=== PATIENT | male | born 1950 | race Caucasian/White ===

== ENCOUNTER → 2019-07-24 09:41 | Outpatient (BNVA) | payer MEDICARE, OTHER, SELFPAY | PROVIDERS: Family Provider Nurse Practitioner Family; PCP Nurse Practitioner Family; Visit Provider Nurse Practitioner | DX: G89.29 Other chronic pain (principal); M47.812 Spondylosis without myelopathy or radiculopathy, cervical region; M54.5 Low back pain; M25.511 Pain in right shoulder; Z79.891 Long term (current) use of opiate analgesic | CPT/HCPCS: 80053; 80061; 83036; 85025; 99213; 99214 ==

== ENCOUNTER 2019-08-13 10:34 | Outpatient (CLI) | payer MEDICARE, OTHER, SELFPAY ==
--- NOTE | 2019-08-13 11:00 | MR_ITS ---
WS: [id number] MRI RIGHT SHOULDER NONCONTRAST TECHNIQUE: Sagittal T2, coronal T1, T2 and proton density imaging. Axial gradient PDE imaging. CLINICAL INFORMATION: Pain COMPARISON: None. FINDINGS: Moderate hypertrophic changes at the AC joint with mild edema. Mild downsloping acromion. Distal supr aspinatus is normal. Infraspinatus is normal. Normal teres minor. Subscapularis tendon is normal in a ppearance. Rotator cuff is intact. Normal biceps tendon in the bicipital groove. Small amount of fluid in the subcoracoid bursa. Small SLAP tear involving the anterosuperior glenoid labrum. Biceps labral anchor appears intact. No other significant findings. MR/MR shoulder RT wo con* [id number] IMPRESSION: 1. Moderate degenerative arthritis at the AC joint with edema and mild downslo ping of the acromion. 2. Rotator cuff is intact. No rotator cuff tears. 3. Normal biceps tendon in the bicipital groove. 4. Suggestion of a small SLAP tear involving the anterior superior glenoid lab rum. Biceps labral anchor appears intact.
== END 2019-08-13 10:35 | disposition home or self-care (01) ==
LOC: RADSHAW 10:34
PROVIDERS: Visit Provider Nurse Practitioner
DX: M25.511 Pain in right shoulder (principal)
CPT/HCPCS: 73221

== ENCOUNTER 2019-08-13 10:40 | Outpatient (CLI) | payer MEDICARE, OTHER, SELFPAY ==
[2019-08-13 12:02] LABS: Prostate Specific Antigen < 0.02 ng/mL (0-4)
[2019-08-13] MEDS: lidocaine 1% INJ 20 mL INJECTION (16:00)
[2019-08-13] MEDS: goserelin acetate 10.8 mg Implant IM (16:13)
== END 2019-08-13 10:41 | disposition home or self-care (01) ==
LOC: ONCMED 10:40
PROVIDERS: Visit Provider Internal Medicine Hematology & Oncology
DX: C61 Malignant neoplasm of prostate (principal); R59.0 Localized enlarged lymph nodes; R91.8 Other nonspecific abnormal finding of lung field; Z79.818 Long term (current) use of other agents affecting estrogen receptors and estrogen levels; Z92.3 Personal history of irradiation
CPT/HCPCS: 84153; 96372; 96402; 99214; J2001; J9202

== ENCOUNTER 2019-08-16 09:00 | Outpatient (CLI) | payer MEDICARE, OTHER, SELFPAY ==
--- NOTE | 2019-08-16 16:23 | ONCRAD EPV_ITS ---
Radiation Oncology Established Patient Visit Patient: Ray MR#: [id number] : 1950> Age: 69> Sex: Male> Dictated by: Dr. Kolby Nick Date of Service: 08/16/2019 Referring Physician(s) : Natacha Mandel Diagnosis: C61 - Malignant neoplasm of prostate, Diagnosed 09/22/2018 (Active) Stage X, T2b, N1, MX Radiotherapy to Date: Course: Prostate Treatment Site: [id number] Ref. ID: [id number] Energy: 15X/6X Dose/Fx (cGy): 180 #Fx: 25 / 25 Dose Correction (cGy): 0 Total Dose (cGy): 4,500 Start Date: 01/15/2019 End Date: 02/16/2019 Elapsed Days: 32 Course: Prostate Treatment Site: [id number] Ref. ID: [id number] Energy: 15X/6X Dose/Fx (cGy): 200 #Fx: 5 / 5 Dose Correction (cGy): 0 Total Dose (cGy): 1,000 Start Date: 02/19/2019 End Date: 02/23/2019 Elapsed Days: 4 Course: Prostate Treatment Site: [id number] Ref. ID: [id number] Energy: 15X/6X Dose/Fx (cGy): 200 #Fx: 8 / 8 Dose Correction (cGy): 0 Total Dose (cGy): 1,600 Start Date: 02/26/2019 End Date: 03/07/2019 Elapsed Days: 9 Course: Prostate Treatment Site: [id number] Ref. ID: [id number] Energy: 15X/6X Dose/Fx (cGy): 200 #Fx: 4 / 4 Dose Correction (cGy): 0 Total Dose (cGy): 800 Start Date: 03/08/2019 End Date: 03/14/2019 Elapsed Days: 6 Chief Complaint / History of Present Illness: The patient is a 68 year old gentleman with a recently diagnosed T2b, N1, Mx adenocarcinoma of the prostate [place] score 4+4, PSA 25.3, high risk disease. He received neoadjuvant, concurrent and adjuvant androgen deprivation therapy in combination with external beam radiation therapy to a total dose of 79 Gy completed on March 14, 2019. He continues androgen deprivation therapy. He is doing very well. He has moderate fatigue and hot flashes that is tolerable, nocturia x3-4 but denies dysuria, urgency, frequency, hematuria, rectal irritation or bleeding. His most recent PSA is 0.02. Current Medications: B12 Folate, calcium, fish Oil, gabapentin, glipiZIDE, ibuprofen, levemir FlexTouch, lipitor, lisinopril, magnesium, metFORMIN HCl, multivitamin Adults, tamsulosin HCl, traMADol HCl, xigduo XR. Allergies: No Known Allergies Current Complaints / Review of Systems: Constitutional - Complains of moderate fatigue. Complains of night sweats which occur every night. Denies lack of appetite and fever. Eyes - Complains of blurred vision in the left eye which he has macular degeneration. ENMT - Denies dysphagia, ear pain, mouth dryness, stomatitis and altered taste. Neck - Complains of neck pain occasionally. Integumentary - Denies rash. Cardiovascular - Denies arrhythmias and chest pain. Respiratory - Complains of a mild cough due to sinus drainage. Denies dyspnea and wheezing. Gastrointestinal - Denies abdominal pain, constipation, diarrhea, heartburn / dyspepsia, hemorrhoids, melena / GI bleeding, nausea and vomiting. Genitourinary (M) - Complains of nocturia gets up about 3 to 4 times per night. Denies dysuria, frequency and urgency. Musculoskeletal - Complains of arthritis and joint pain both shoulders. Denies bone pain. Neurologic - Complains of headaches occasionally. Denies dizziness and abnormal gait. Endocrine - Complains of Type 2 diabetes. Complains of frequent hot flashes. Denies thyroid disease. Hematologic/Lymphatic - Denies tender or enlarged lymph nodes.. Vital Signs: Performed on 08/16/2019 9:25 AM BMI - 26.968 kg/m2 (high), Height - 73.00 in, Weight - 204.4 lbs, Temperature - 97.7 f, Pulse - 71, Respiration - 20, O2 Sat - 97 %, Pain - 0 and BP - 149/ 79 mm(hg)(high/). Physical Exam: General: Alert and oriented x 3. No acute distress. HEENT: Normocephalic, atraumatic. Extraocular Movements Intact: Pupils Equal, Round, Reactive to Light and Accommodation: Sclerae anicteric. Oral cavity is clear without lesions, masses or ulcers. NECK: Supple without supraclavicular or jugular lymphadenopathy. LUNGS: Clear to auscultation bilaterally without rales, rhonchi or wheeze. HEART: Regular rate and rhythm, normal S1 and S2 without murmur, gallop or rub. MUSCULOSKELETAL: No tenderness or percussion pain over the axial skeleton, scapulae or pelvis. ABDOMEN: Soft, nontender, nondistended without masses or organomegaly. Bowel sounds are present. EXTREMITIES: No peripheral edema is identified. Limited motor and sensory examination are grossly intact and symmetric bilaterally. NEUROLOGIC: Cranial nerves II ???XII are grossly intact. Normal sensation, strength 5/5 in all extremities, normal gait, no ataxia. Performance Status: 0 - Fully active, able to carry on all predisease activities without restrictions. (ECOG) Lab: Test performed on 05/11/2019 8:55 AM Testosterone, Total - 2.5 ng/dl (low). PSA 0.02 ng/ml Pathology: Adenocarcinoma of prostate Imaging: See HPI Impression: The patient has a good response to combination therapy. There is no evidence of recurrence or progression of disease. There is no clinical evidence of late radiation toxicities. Plan: The patient will continue androgen deprivation therapy under the care of Dr. Mandel. We will check his PSA in 3 months and he will follow-up with us afterwards. He is instructed to contact us earlier if he has any questions or issues. Signed by: 08/16/2019 4:22:01 PM <<Signature on File>> CPT Code: CPT Code: Signed By: Dr. Kolby Nick, 08/16/2019 4:22:02 PM <<Signature on File>>
== END 2019-08-16 09:01 | disposition home or self-care (01) ==
LOC: ONCMED 09:01
PROVIDERS: Visit Provider Radiology Radiation Oncology
DX: C61 Malignant neoplasm of prostate (principal); E11.9 Type 2 diabetes mellitus without complications; M19.012 Primary osteoarthritis, left shoulder; M19.011 Primary osteoarthritis, right shoulder; Z79.818 Long term (current) use of other agents affecting estrogen receptors and estrogen levels; Z92.3 Personal history of irradiation
CPT/HCPCS: 99213

== ENCOUNTER → 2019-09-18 08:43 | Outpatient (BNVA) | payer MEDICARE, OTHER, SELFPAY | PROVIDERS: PCP Nurse Practitioner; Visit Provider Anesthesiology | DX: R53.82 Chronic fatigue, unspecified (principal); M25.50 Pain in unspecified joint | CPT/HCPCS: 99213 ==

== ENCOUNTER → 2019-10-09 09:28 | Outpatient (BNVA) | payer MEDICARE, OTHER, SELFPAY | PROVIDERS: Visit Provider Nurse Practitioner | DX: E11.65 Type 2 diabetes mellitus with hyperglycemia (principal); Z79.4 Long term (current) use of insulin; E11.9 Type 2 diabetes mellitus without complications | CPT/HCPCS: 80053; 80061; 82044; 83036 ==

== ENCOUNTER 2019-11-12 11:43 | Outpatient (CLI) | payer MEDICARE, OTHER, SELFPAY ==
[2019-11-12 13:05] LABS: Basophils % 0.4 %; Eosinophils # 0.2 10^3/uL (0.0-0.8); Eosinophils % 2.9 %; Hematocrit 33.2 % (42.0-52.0); Hemoglobin 11.4 g/dL (11.7-16.6); Lymphocytes # 1.3 10^3/uL (0.8-4.8); Lymphocytes % 24.4 %; Mean Corpuscular HGB Conc 34.3 g/dL (30.0-36.0); Mean Corpuscular Volume 93.3 fL (80-94); Mean Platelet Volume 10.7 fL (7.4-10.4); Monocytes # 0.4 10^3/uL (0.2-0.9); Monocytes % 7.6 %; Neutrophils # 3.3 10^3/uL (1.8-7.7); Neutrophils % 64.5 %; Nucleated Red Blood Cells % 0 %; Platelet Count 193 10^3/cmm (130-400); Red Blood Count 3.56 10^6/uL (4.1-5.3); Red Cell Distribution Width 12.1 % (12.1-15.1); White Blood Count 5.1 10^3/uL (4.0-10.0)
[2019-11-12 13:21] LABS: Alanine Aminotransferase 21 U/L (0-41); Albumin Level 4.4 g/dL (3.5-5.2); Alkaline Phosphatase 69 IU/L (40-130); Anion Gap 15.8 (5-19); Aspartate Amino Transferase 18 U/L (0-40); Blood Urea Nitrogen 24 mg/dL (8-23); Calcium 9.8 mg/dL (8.5-10.5); Carbon Dioxide 24 mmol/L (22-29); Chloride 103 mmol/L (98-107); Globulin 2.4 g/dL (1.3-4.6); Glucose 193 mg/dL (65-115); Osmolality Calculated 288 mOsm/kg (285-295); Potassium 4.8 mmol/L (3.5-5.1); Sodium 138 mmol/L (136-145); Total Bilirubin 0.8 mg/dL (0.15-1.2); Total Protein 6.8 g/dL (6.6-8.7)
[2019-11-12 13:51] LABS: Prostate Specific Antigen < 0.02 ng/mL (0-4)
[2019-11-12] MEDS: lidocaine 1% INJ 20 mL INJECTION (14:01)
[2019-11-12] MEDS: goserelin acetate 10.8 mg Implant IM (14:14)
--- NOTE | 2019-11-12 14:41 | ONC FU_ITS ---
Dr. Mandel follow up note Patient: Braden Sommer Unit #: [id number]: 1950 Dicatated By: Natacha Mandel M.D.Date of Visit:November 12, 2019 Onc Med Follow-up/Prog Note History of Present Illness: Mr. Braden Sommer, is a 69-year-old gentleman with history of elevated PSA recently on 09/22/2018 underwent TRUSP/biopsy and final pathology report showed in right lateral mid prostate, prostatic adenocarcinoma [place] score 4+4, microscopic focus and in right lateral base, prostatic adenocarcinoma [place] score 3+4 again microscopic focus his PSA at that time diagnosis in September 2018 was 25.3. Patient had bone scan done on 10/11/2018 which showed no definite osteoblastic lesion but there were several areas of suspicious. And CT scan of abdomen pelvis done on 10/11/2018 also showed necrotic left obturator lymph node measuring 2.5 cm and subcentimeter left iliac chain lymph nodes and subcentimeter subpleural left lower lobe nodule Patient was given prescription for bicalutamide 50 mg by mouth daily by Dr. Gonzales.And the Zoladex was started on 11/08/2018 Concurrent radiation therapy to the prostate gland was added on 01/15/2019 And completed on 03/14/2019 Bicalutamide was discontinued because of severe hot flashes and sweating being high risk ,Now on Zoladex alone CT scan of chest done on 11/22/2018 showed stable appearance left lower lobe 5 mm groundglass nodule Left axillary lymphadenopathy of uncertain clinical significance size 14 mm Came for follow-up, denies any specific complaints, no fever and chills no nausea or vomiting no diarrhea constipation no dysuria, no new bony pains, but occasional hot flashes otherwise tolerating Zoladex well Medications: B12 Folate 1 Capsule (of 800-800 mcg) Oral daily, Calcium 1 Tablet (of 500 mg) Oral daily, Fish Oil 1 Capsule (of 1000 mg) Oral daily, Gabapentin 1 Tablet (of 100 mg) Oral PRN, glipiZIDE 1 Tablet (of 5 mg) Oral b.i.d., Ibuprofen 2 Capsule (of 200 mg) Oral PRN, Levemir FlexTouch 1 Units (of 100 Units/L) Subcutaneous daily, Lipitor 1 Tablet (of 80 mg) Oral daily, Lisinopril 1 Tablet (of 10 mg) Oral daily, Magnesium 1 Tablet (of 250 mg) Oral daily, metFORMIN HCl 2 Tablet (of 1000 mg) Oral b.i.d., Multivitamin Adults 1 Tablet Oral daily, Tamsulosin HCl 1 Capsule (of 0.4 mg) Oral at bedtime, traMADol HCl 1 Tablet (of 50 mg) Oral q 6 hours Allergies: No Known Allergies. Review of Systems: Constitutional - Complains of lack of appetite and night sweats. Denies rigors / chills and change in weight, Integumentary - Denies rash, Cardiovascular - Denies arrhythmias, chest pain and palpitations, Respiratory - Denies cough, dyspnea and pleuritic chest pain, Gastrointestinal - Complains of nausea. Denies constipation, diarrhea and vomiting, Genitourinary (M) - Complains of nocturia. Denies dysuria, hematuria, incontinence and urgency, Musculoskeletal - Complains of joint pain in his wrists and arms due to arthritis, Neurologic - Complains of headaches in the morning due to seasonal allergies and insomnia, Psychiatric - Denies depression, Hematologic/Lymphatic - Complains of easy bruising, Constitutional - He is feeling okay and his energy level is good. He is able to do some light work. His appetite is poor but he is able to eat. His weight is stable. No fevers or chills. He has hot flashes and night sweats, ENMT - He has hearing loss. No sore throat. He has sinus drainage particularly in the mornings, Hematologic/Lymphatic - He bruises easily. The patient denies any tender or palpable lymph nodes, Respiratory - No dyspnea on exertion, chest pain, cough or hemoptysis, Cardiovascular - No anginal chest pain, palpitations or orthopnea, Gastrointestinal - He has occasional nausea in the mornings. No vomiting. No diarrhea, GI bleeding, or constipation. No change in bowel habits, no heartburn or early satiety, Genitourinary (M) - No hematuria, dysuria. He has frequency at night. No urgency, hesitancy or incontinence, Musculoskeletal - He has arthiric pain in his wrist and arms. No swelling or redness. No decreased range of motion, Integumentary - No chronic rashes, inflammation, ulcerations or skin changes, Neurologic - He has occasional headaches in the morning related to sinuses. No blurred vision. He has some neuropathy in his feet, Psychiatric - He denies any anxiety, depression, or mood swings. He doesn't sleep well. Vital Signs: Performed on November 12, 2019 13:58 Weight - 197.4 lbs Temperature - 97 F Pulse - 72 Respiration - 18 BP - 144/72 mm(hg) (HIGH) O2 Sat - 100 % Pain - 0 Performed on November 12, 2019 13:36 Height - 73.00 in Weight - 197.4 lbs (LOW) BSA - 2.14 sq.m BMI - 26.04 Temperature - 97.0 F (LOW) Pulse - 72 /min Respiration - 18 /min BP - 144/72 mm(hg) (HIGH) O2 Sat - 100 % Pain - 0 Performance Status: 1 - No physically strenuous activity, but ambulatory and able to carry out light or sedentary work (e.g. office work, light house work). (ECOG) Physical Examination: ENMT - no mouth sores, Respiratory - Lungs are clear, Extremities - no visible edema or rash. Lab/Imaging: Test performed on Aug 13, 2019 10:46 PSA < 0.02 ng/mL Impression: Adenocarcinoma prostate status post TRUSP/biopsy on 09/22/2018 final pathology report showed adenocarcinoma in 2 cores e.g. right lateral mid, [place] score 4+4, microscopic focus only and right lateral base [place] score 3+4 again microscopic focus, PSA at the time of diagnosis was 25.3 .Stage cT2b, N1 MX Bone scan done on 10/11/2018 showed no obvious bone metastases but right scapula focal activity with associated sclerotic focus could be osteoblastic lesion or prior trauma Increased activity overlaying the left inferior pubic ramus without associated osteoblastic lesion on CT pelvis same day CT scan of abdomen pelvis done on 10/11/2018 showed necrotic left obturator lymph node measuring 2.5 cm. Suspicious for lymphadenopathy. Subcentimeter left iliac chain lymph nodes. Enlarged heterogeneous prostate gland measures 6.8 x 6.2 x 6.4 cm. Subcentimeter subpleural left lower lobe nodule. Recommended follow-up CT chest in 3-[address] scan of chest done on showed 11/22/2018 stable appearance left lower lobe 5 mm groundglass nodule. Started on Casodex 50 mg by mouth daily and Zoladex 10.8 mg on 11/08/2018 And was referred to radiation oncology forr concurrent radiation therapy, which he started on 01/15/2019 and completed on 03/14/2019. And bicalutamide was also discontinued , now being high risk,treated with 3 monthly Zoladex alone Left exited lymphadenopathy of uncertain clinical significance, size 14 mm questionable reactive Plan: Discussed with patient regarding his labs white blood count 5.1 hemoglobin 11.4 hematocrit 33.2 platelets 193,000 CMP within normal limit except glucose 193 and PSA less than 0.02 Clinically, patient is doing well with no signs symptoms suggestive of recurrence of disease, and follow-up lab shows PSA still less than 0.02, tolerating Zoladex alone well. But with expected side effects e.g. hot flashes but tolerable. We will proceed with next 3 monthly dose of Zoladex 10.8 mg today and then he'll return to clinic in 3 months with CBC CMP and PSA Mild anemia, etiology could be multifactorial, will continue to monitor. Signed By: Natacha Mandel M.D. <<Signature on File>>
--- NOTE | 2019-11-12 16:18 | ONCRAD EPV_ITS ---
Radiation Oncology Established Patient Visit Patient: Ray MR#: [id number] : 1950> Age: 69> Sex: Male> Dictated by: Dr. Tiago Dillard Date of Service: 11/12/2019 Referring Physician(s) : Dr. Royer Gonzales Diagnosis: C61 - Malignant neoplasm of prostate, Diagnosed 09/22/2018 (Active) Stage SARANYA, T2b, N1, M0 Radiotherapy to Date: Course: Prostate, Treatment Site: [id number], Ref. ID: [id number], Energy: 15X/6X, Dose/Fx (cGy): 180, #Fx: 25 / 25, Dose Correction (cGy): 0, Total Dose (cGy): 4,500, Start Date: 01/15/2019, End Date: 02/16/2019, Elapsed Days: 32 Treatment Site: [id number], Ref. ID: [id number], Energy: 15X/6X, Dose/Fx (cGy): 200, #Fx: 5 / 5, Dose Correction (cGy): 0, Total Dose (cGy): 1,000, Start Date: 02/19/2019, End Date: 02/23/2019, Elapsed Days: 4 Treatment Site: [id number], Ref. ID: [id number], Energy: 15X/6X, Dose/Fx (cGy): 200, #Fx: 8 / 8, Dose Correction (cGy): 0, Total Dose (cGy): 1,600, Start Date: 02/26/2019, End Date: 03/07/2019, Elapsed Days: 9 Treatment Site: [id number], Ref. ID: [id number], Energy: 15X/6X, Dose/Fx (cGy): 200, #Fx: 4 / 4, Dose Correction (cGy): 0, Total Dose (cGy): 800, Start Date: 03/08/2019, End Date: 03/14/2019, Elapsed Days: 6 Chief Complaint / History of Present Illness: Mr. Sommer is now 8 months out from pelvic and prostate radiation treatment. He is on ongoing androgen deprivation therapy. Overall he is stable his urinary function is unchanged from prior to radiation to the current time he has good flow no daytime frequency and stable 3-4 time nocturia. He is on 1 Flomax per day . He has normal flow with no pain or bleeding. His bowel function is normal. He is active with gardening and yard work. He has stable weight with fair appetite. .He does note ongoing hot flashes unchanged which can be bothersome He desires no treatment for this however. Current Medications: B12 Folate, calcium, fish Oil, gabapentin, glipiZIDE, ibuprofen, levemir FlexTouch, lipitor, lisinopril, magnesium, metFORMIN HCl, multivitamin Adults, tamsulosin HCl, traMADol HCl. Allergies: No Known Allergies Current Complaints / Review of Systems: Constitutional - Complains of lack of appetite and night sweats. Denies rigors / chills and change in weight. Integumentary - Denies rash. Cardiovascular - Denies arrhythmias, chest pain and palpitations. Respiratory - Denies cough, dyspnea and pleuritic chest pain. Gastrointestinal - Complains of nausea. Denies constipation, diarrhea and vomiting. Genitourinary (M) - Complains of nocturia. Denies dysuria, hematuria, incontinence and urgency. Musculoskeletal - Complains of joint pain in his wrists and arms due to arthritis. Neurologic - Complains of headaches in the morning due to seasonal allergies and insomnia. Psychiatric - Denies depression. Hematologic/Lymphatic - Complains of easy bruising.. Vital Signs: Performed on 11/12/2019 1:36 PM Height - 73.00 in, Weight - 197.4 lbs (low), BSA - 2.14 sq.m, BMI - 26.04, Temperature - 97.0 f (low), Pulse - 72 /min, Respiration - 18 /min, O2 Sat - 100 %, Pain - 0 and BP - 144/ 72 mm(hg)(high/). Physical Exam: General: Alert and oriented x 3. No acute distress. HEENT: Normocephalic, atraumatic. Extraocular Movements Intact: Pupils Equal, Round, Reactive to Light and Accommodation: Sclerae anicteric. Oral cavity is clear without lesions, masses or ulcers. NECK: Supple without supraclavicular or jugular lymphadenopathy. LUNGS: Clear to auscultation bilaterally without rales, rhonchi or wheeze. HEART: Regular rate and rhythm, normal S1 and S2 without murmur, gallop or rub. MUSCULOSKELETAL: No tenderness or percussion pain over the axial skeleton, scapulae or pelvis. ABDOMEN: Soft, nontender, nondistended without masses or organomegaly. [place] sounds are present. EXTREMITIES: No peripheral edema is identified. Limited motor and sensory examination are grossly intact and symmetric bilaterally. NEUROLOGIC: Cranial nerves II ???XII are grossly intact. Normal sensation, strength 5/5 in all extremities, normal gait, no ataxia. RECTAL:Omitted Performance Status: 100 Lab: None pending. PSA today <0.02 Pathology: Primary, c61 - malignant neoplasm of prostate, Diagnosed 09/22/2018 (active) stage SARANYA, t2b, n1, mo. Imaging: See HPI Impression: Stage Sar[place] adenocarcinoma the prostateRegionally advanced high-grade he is done well with definitive radiation and androgen deprivation therapy. He is urinary function is unchanged following treatment. He has hormonal withdrawal hot flashes are bothersome but he desires not treatment for this at this time. He will remain on androgen deprivation for approximately 24 months in total. I did renew his Flomax 1/day 90-day supply. We will see him in follow-up in 3 months. Signed by: 11/12/2019 4:17:14 PM <<Signature on File>> Time spent with patient: CPT Code: CPT Code:
== END 2019-11-12 11:44 | disposition home or self-care (01) ==
LOC: ONCMED 11:49
PROVIDERS: Absent Provider Radiology Radiation Oncology; PCP Nurse Practitioner; Visit Provider Internal Medicine Hematology & Oncology
DX: C61 Malignant neoplasm of prostate (principal); R59.0 Localized enlarged lymph nodes; D64.9 Anemia, unspecified; Z79.818 Long term (current) use of other agents affecting estrogen receptors and estrogen levels
CPT/HCPCS: 36415; 80053; 84153; 85025; 96372; 96402; 99213; 99214; J2001; J9202

== ENCOUNTER → 2020-01-29 13:09 | Outpatient (BNVA) | payer MEDICARE, OTHER, SELFPAY | PROVIDERS: PCP Nurse Practitioner; Visit Provider Anesthesiology | DX: G89.29 Other chronic pain (principal); M47.812 Spondylosis without myelopathy or radiculopathy, cervical region; M25.511 Pain in right shoulder; Z79.891 Long term (current) use of opiate analgesic | CPT/HCPCS: 99214 ==

== ENCOUNTER → 2020-02-11 13:39 | Outpatient (BNVA) | payer MEDICARE, OTHER, SELFPAY | PROVIDERS: PCP Nurse Practitioner; Visit Provider Internal Medicine Hematology & Oncology | DX: C61 Malignant neoplasm of prostate (principal) | CPT/HCPCS: 80053; 84153; 85025 ==

== ENCOUNTER 2020-02-12 12:04 | Outpatient (CLI) | payer MEDICARE, OTHER, SELFPAY ==
[2020-02-12] MEDS: lidocaine 1% INJ 20 mL INJECTION (13:50)
[2020-02-12] MEDS: goserelin acetate 10.8 mg Implant IM (14:02)
--- NOTE | 2020-02-12 16:07 | ONC FU_ITS ---
Dr. Mandel follow up note Patient: Braden Sommer Unit #: [id number]: 1950 Dicatated By: Natacha Mandel M.D.Date of Visit:Feb 12, 2020 Onc Med Follow-up/Prog Note History of Present Illness: Mr. Braden Sommer, is a 69-year-old gentleman with history of elevated PSA recently on 09/22/2018 underwent TRUSP/biopsy and final pathology report showed in right lateral mid prostate, prostatic adenocarcinoma [place] score 4+4, microscopic focus and in right lateral base, prostatic adenocarcinoma [place] score 3+4 again microscopic focus his PSA at that time diagnosis in September 2018 was 25.3. Patient had bone scan done on 10/11/2018 which showed no definite osteoblastic lesion but there were several areas of suspicious. And CT scan of abdomen pelvis done on 10/11/2018 also showed necrotic left obturator lymph node measuring 2.5 cm and subcentimeter left iliac chain lymph nodes and subcentimeter subpleural left lower lobe nodule Patient was given prescription for bicalutamide 50 mg by mouth daily by Dr. Gonzales.And the Zoladex was started on 11/08/2018 Concurrent radiation therapy to the prostate gland was added on 01/15/2019 And completed on 03/14/2019 Bicalutamide was discontinued because of severe hot flashes and sweating being high risk ,Now on Zoladex alone CT scan of chest done on 11/22/2018 showed stable appearance left lower lobe 5 mm groundglass nodule Left axillary lymphadenopathy of uncertain clinical significance size 14 mm Came for follow-up, denies any specific complaints except occasionally hot flashes otherwise no fever chills, no nausea or vomiting, no diarrhea constipation, no new bony pains, no dysuria or hematuria, appetite is good. Tolerating adjuvant Zoladex well Medications: B12 Folate 1 Capsule (of 800-800 mcg) Oral daily, Calcium 1 Tablet (of 500 mg) Oral daily, Fish Oil 1 Capsule (of 1000 mg) Oral daily, Gabapentin 1 Tablet (of 100 mg) Oral PRN, glipiZIDE 1 Tablet (of 5 mg) Oral b.i.d., Ibuprofen 2 Capsule (of 200 mg) Oral PRN, Levemir FlexTouch 40 Units (of 100 Units/L) Subcutaneous daily, Lipitor 1 Tablet (of 80 mg) Oral daily, Lisinopril 1 Tablet (of 10 mg) Oral daily, Magnesium 1 Tablet (of 250 mg) Oral daily, metFORMIN HCl 2 Tablet (of 1000 mg) Oral b.i.d., Multivitamin Adults 1 Tablet Oral daily, Tamsulosin HCl 1 Capsule (of 0.4 mg) Oral at bedtime, traMADol HCl 1 Tablet (of 50 mg) Oral q 6 hours Allergies: No Known Allergies. Review of Systems: Review of Systems is not available for this patient. Vital Signs: Performed on Feb 12, 2020 13:26 Height - 73.00 in Weight - 194.0 lbs (LOW) BSA - 2.12 sq.m BMI - 25.60 Temperature - 97.6 F (LOW) Pulse - 80 /min Respiration - 18 /min BP - 142/71 mm(hg) (HIGH) O2 Sat - 98 % Pain - 0 Performance Status: 0 - Fully active, able to carry on all predisease activities without restrictions. (ECOG) Physical Examination: ENMT - No mouth sores, no thrush or jaundice, Respiratory - Lungs are clear, Cardiovascular - Regular rate and rhythm of heart, Abdomen - Soft, bowel sounds present, Extremities - No visible edema or rash. Lab/Imaging: Test performed on Feb 11, 2020 13:39 Glucose 245 mg/dL BUN 27 mg/dL Creatinine 0.9 mg/dL Cr Clearance (Est) 93.7000 mL/min Sodium 138 mmol/L Potassium 4.0 mmol/L Chloride 101 mmol/L CO2 24 mmol/L Calcium 9.8 mg/dL Protein, Total 6.8 g/dL Albumin 4.8 g/dL Globulin 2.0 g/dL Bilirubin, Total 0.5 mg/dL Alkaline Phosphatase 101 IU/L AST (SGOT) 23 IU/L ALT (SGPT) 26 IU/L WBC 5.8 10^9/L RBC 3.64 10^12/L HGB 11.9 g/dL HCT 34.3 % MCV 94.2 fl MCH 32.7 pg MCHC 34.7 g/dL RDW 12.1 % Platelet Count 213 10^9/L MPV 10.8 fL Neutrophils (Gran) 3.64 10^9/L Lymphocytes 1.4 10^9/L Monocytes 0.5 10^9/L Eosinophils 0.2 10^9/L Basophils 0.0 10^9/L Manual Lymphocytes 24.2 % Manual Monocytes 8.2 % Manual Eosinophils 3.3 % Manual Basophils 0.5 % PSA 0.006 ng/mL Test performed on November 12, 2019 12:01 Anion Gap 15.8 Neutrophil % 64.5 % Lymphocyte % 24.4 % Monocyte % 7.6 % Eosinophil % 2.9 % Basophils % 0.4 % Impression: Adenocarcinoma prostate status post TRUSP/biopsy on 09/22/2018 final pathology report showed adenocarcinoma in 2 cores e.g. right lateral mid, [place] score 4+4, microscopic focus only and right lateral base Audelia score 3+4 again microscopic focus, PSA at the time of diagnosis was 25.3 .Stage cT2b, N1 MX Bone scan done on 10/11/2018 showed no obvious bone metastases but right scapula focal activity with associated sclerotic focus could be osteoblastic lesion or prior trauma Increased activity overlaying the left inferior pubic ramus without associated osteoblastic lesion on CT pelvis same day CT scan of abdomen pelvis done on 10/11/2018 showed necrotic left obturator lymph node measuring 2.5 cm. Suspicious for lymphadenopathy. Subcentimeter left iliac chain lymph nodes. Enlarged heterogeneous prostate gland measures 6.8 x 6.2 x 6.4 cm. Subcentimeter subpleural left lower lobe nodule. Recommended follow-up CT chest in 3-[address] scan of chest done on showed 11/22/2018 stable appearance left lower lobe 5 mm groundglass nodule. Started on Casodex 50 mg by mouth daily and Zoladex 10.8 mg on 11/08/2018 And was referred to radiation oncology forr concurrent radiation therapy, which he started on 01/15/2019 and completed on 03/14/2019. And bicalutamide was also discontinued , now being high risk,treated with 3 monthly Zoladex alone Left exited lymphadenopathy of uncertain clinical significance, size 14 mm questionable reactive Plan: Discussed with patient regarding his labs white blood count 5.8 hemoglobin 11.9 hematocrit 34.3 platelets 213,000 CMP within normal limits except glucose 245 and PSA is 0.006 Clinically, patient is doing well with no signs symptom suggestive of recurrence of disease, PSA still subzero, tolerating Zoladex well but with expected side effects e.g. occasional hot flashes. We will proceed with the next 3 monthly dose of Zoladex today and then he will return to clinic in 3 months with CBC CMP and PSA. Patient has history of left lower lobe lung 5 mm groundglass nodule, we will consider follow-up prior to next CT scan of chest visit in 3 months. Signed By: Natacha Mandel M.D. <<Signature on File>>
== END 2020-02-12 12:05 | disposition home or self-care (01) ==
LOC: ONCMED 12:07
PROVIDERS: Absent Provider Radiology Radiation Oncology; PCP Nurse Practitioner; Visit Provider Internal Medicine Hematology & Oncology
DX: C61 Malignant neoplasm of prostate (principal); R59.0 Localized enlarged lymph nodes; R91.1 Solitary pulmonary nodule; Z79.818 Long term (current) use of other agents affecting estrogen receptors and estrogen levels; E11.65 Type 2 diabetes mellitus with hyperglycemia; E78.2 Mixed hyperlipidemia; Z79.4 Long term (current) use of insulin; Z92.3 Personal history of irradiation
CPT/HCPCS: 80061; 83036; 83721; 96402; 99214; J9202

== ENCOUNTER 2020-02-20 09:47 | Outpatient (CLI) | payer MEDICARE, OTHER, SELFPAY ==
--- NOTE | 2020-02-20 09:53 | CT_ITS ---
WS: [id number] CT scan of the chest with IV contrast, additional two-dimensional coronal and sagittal reconstruction was performed. 02/20/2020 Clinical Data: PROSTATE CANCER Comparison: CT chest, 11/22/2018. DLP: 836.[address] scans at [facility] use at least one of these dose optimization techniques: automat ed exposure control; mA and/or kV adjustment per patient size (includes targeted exams where dose is matched to clinical indication); or iterative reconstruction. Findings: No masses or effusions are seen. There is a left lower lobe nodule in the lung periphery measuring 0. 5 cm seen best on axial image 48 of 67. It is unchanged and has a appearance of a granuloma. The hear t size is normal with no pericardial effusion. The thyroid gland is not remarkable. The pulmonary art erial system and thoracic aorta demonstrate no abnormalities or dilatations. There is no mediastinal adenopathy. A 0.14 cm left axillary lymph node seen best on axial image 8 of 67 has not changed. The upper abdomen remains the same. CT/CT chest w con* [id number] Impression: No acute cardiopulmonary disease.
[2020-02-20] MEDS: iohexol 300 mg/mL 100 mL Btl IV (11:28)
== END 2020-02-20 09:48 | disposition home or self-care (01) ==
LOC: RADWPI 09:53
PROVIDERS: Family Provider Nurse Practitioner; PCP Nurse Practitioner; Visit Provider Internal Medicine Hematology & Oncology
DX: C61 Malignant neoplasm of prostate (principal)
CPT/HCPCS: 71260; Q9967

== ENCOUNTER → 2020-04-22 10:50 | Outpatient (BNVA) | payer MEDICARE, OTHER, SELFPAY | PROVIDERS: PCP Nurse Practitioner; Visit Provider Anesthesiology | DX: M47.812 Spondylosis without myelopathy or radiculopathy, cervical region (principal); M25.511 Pain in right shoulder; Z79.891 Long term (current) use of opiate analgesic | CPT/HCPCS: 99213; 99214 ==

== ENCOUNTER → 2020-05-12 08:23 | Outpatient (BNVA) | payer MEDICARE, OTHER, SELFPAY | PROVIDERS: PCP Nurse Practitioner; Visit Provider Internal Medicine Medical Oncology | DX: E11.65 Type 2 diabetes mellitus with hyperglycemia (principal); I10 Essential (primary) hypertension; Z79.4 Long term (current) use of insulin; Z79.899 Other long term (current) drug therapy; E78.2 Mixed hyperlipidemia; C61 Malignant neoplasm of prostate | CPT/HCPCS: 80053; 80061; 83036; 84153; 85025 ==

== ENCOUNTER 2020-05-14 13:44 | Outpatient (CLI) | payer MEDICARE, OTHER, SELFPAY ==
[2020-05-14] MEDS: lidocaine 1% INJ 20 mL INJECTION (15:34)
[2020-05-14] MEDS: goserelin acetate 10.8 mg Implant IM (15:48)
--- NOTE | 2020-05-14 15:54 | ONC FU_ITS ---
Dr. Mandel follow up note Patient: Braden Sommer Unit #: [id number]: [id number] Dicatated By: Natacha Mandel M.D.Date of Visit:May 14, 2020 Onc Med Follow-up/Prog Note History of Present Illness: Mr. Braden Sommer, is a 70-year-old gentleman with history of elevated PSA recently on 09/22/2018 underwent TRUSP/biopsy and final pathology report showed in right lateral mid prostate, prostatic adenocarcinoma [place] score 4+4, microscopic focus and in right lateral base, prostatic adenocarcinoma Audelia score 3+4 again microscopic focus his PSA at that time diagnosis in September 2018 was 25.3. Patient had bone scan done on 10/11/2018 which showed no definite osteoblastic lesion but there were several areas of suspicious. And CT scan of abdomen pelvis done on 10/11/2018 also showed necrotic left obturator lymph node measuring 2.5 cm and subcentimeter left iliac chain lymph nodes and subcentimeter subpleural left lower lobe nodule Patient was given prescription for bicalutamide 50 mg by mouth daily by Dr. Gonzales.And the Zoladex was started on 11/08/2018 Concurrent radiation therapy to the prostate gland was added on 01/15/2019 And completed on 03/14/2019 Bicalutamide was discontinued because of severe hot flashes and sweating being high risk ,Now on Zoladex alone CT scan of chest done on 11/22/2018 showed stable appearance left lower lobe 5 mm groundglass nodule Left axillary lymphadenopathy of uncertain clinical significance size 14 mm Follow-up CT scan of chest done on February 20, 2020, showed there is a left lower lobe nodule in the lung periphery measuring 0.5 cm it is unchanged and has appearance of granuloma. And 0.14 cm left axillary lymph node has not changed. Came for follow-up, denies any specific complaints except occasionally hot flashes but no fever chills, no nausea or vomiting, no diarrhea constipation, tolerating Zoladex well along with vitamin D and calcium supplements. Medications: B12 Folate 1 Capsule (of 800-800 mcg) Oral daily, [place] 5 MCG Pen 1 (5 mcg/0.02mL) Subcutaneous b.i.d., Calcium 1 Tablet (of 500 mg) Oral daily, Fish Oil 1 Capsule (of 1000 mg) Oral daily, Gabapentin 1 Tablet (of 100 mg) Oral PRN, glipiZIDE 1 Tablet (of 5 mg) Oral b.i.d., Ibuprofen 2 Capsule (of 200 mg) Oral PRN, Levemir FlexTouch 40 Units (of 100 Units/L) Subcutaneous daily, Lipitor 1 Tablet (of 80 mg) Oral daily, Lisinopril 1 Tablet (of 10 mg) Oral daily, Magnesium 1 Tablet (of 250 mg) Oral daily, metFORMIN HCl 2 Tablet (of 1000 mg) Oral b.i.d., Multivitamin Adults 1 Tablet Oral daily, NovoLOG (100 Units/mL) Subcutaneous Take as Directed, Tamsulosin HCl 1 Capsule (of 0.4 mg) Oral at bedtime, traMADol HCl 1 Tablet (of 50 mg) Oral q 6 hours Allergies: No Known Allergies. Review of Systems: Constitutional - Appetite is stable and weight is stable. No fever, chills, or night sweats. Positive for hot flashes. Energy level is fair, ENMT - No sinus congestion/drainage. No mouth sores. No sore throat or difficulty swallowing, Hematologic/Lymphatic - Easy bruising, Respiratory - No shortness of breath. No cough. No pleuritic pain or hemoptysis, Cardiovascular - No angina pain. No palpitations, Gastrointestinal - No nausea or vomiting. Positive for heartburn/indigestion. No diarrhea or constipation. No blood in the stool or black stools, Genitourinary (M) - No dysuria or hematuria. Positive for urinary frequency, nocturia and incontinence, Musculoskeletal - Positive for joint and back pain, Neurologic - No headache. Positive for dizziness. No numbness/paresthesias or other focal neurologic symptoms, Psychiatric - Positive for anxiety and insomnia. Vital Signs: Performed on May 14, 2020 15:08 Height - 73.00 in Weight - 205.0 lbs (HIGH) BSA - 2.17 sq.m BMI - 27.05 Temperature - 98.0 F (LOW) Pulse - 84 /min Respiration - 18 /min BP - 150/81 mm(hg) (HIGH) O2 Sat - 98 % Pain - 0 Performance Status: 0 - Fully active, able to carry on all predisease activities without restrictions. (ECOG) Physical Examination: ENMT - No mouth sores, no thrush, no jaundice, Respiratory - Lungs are clear to auscultation, Cardiovascular - Regular rate and rhythm of heart, Abdomen - Soft, bowel sounds present, Extremities - No visible edema. Lab/Imaging: Test performed on May 12, 2020 08:23 Glucose 86 mg/dL BUN 26 mg/dL Creatinine 0.8 mg/dL Cr Clearance (Est) 109.78 mL/min Sodium 140 mmol/L Potassium 4.4 mmol/L Chloride 103 mmol/L CO2 26 mmol/L Calcium 9.9 mg/dL Protein, Total 6.6 g/dL Albumin 4.5 g/dL Globulin 2.1 g/dL Bilirubin, Total 0.7 mg/dL Alkaline Phosphatase 106 IU/L AST (SGOT) 25 IU/L ALT (SGPT) 26 IU/L WBC 7.0 10^9/L RBC 3.55 10^12/L HGB 11.9 g/dL HCT 33.9 % MCV 95.5 fl MCH 33.5 pg MCHC 35.1 g/dL RDW 13.1 % Platelet Count 207 10^9/L MPV 10.6 fL Neutrophils (Gran) 4.41 10^9/L Lymphocytes 1.7 10^9/L Monocytes 0.6 10^9/L Eosinophils 0.2 10^9/L Basophils 0.0 10^9/L Manual Lymphocytes 24.6 % Manual Monocytes 8.3 % Manual Eosinophils 2.9 % Manual Basophils 0.4 % PSA 0.006 ng/mL Impression: Adenocarcinoma prostate status post TRUSP/biopsy on 09/22/2018 final pathology report showed adenocarcinoma in 2 cores e.g. right lateral mid, [place] score 4+4, microscopic focus only and right lateral base [place] score 3+4 again microscopic focus, PSA at the time of diagnosis was 25.3 .Stage cT2b, N1 MX Bone scan done on 10/11/2018 showed no obvious bone metastases but right scapula focal activity with associated sclerotic focus could be osteoblastic lesion or prior trauma Increased activity overlaying the left inferior pubic ramus without associated osteoblastic lesion on CT pelvis same day CT scan of abdomen pelvis done on 10/11/2018 showed necrotic left obturator lymph node measuring 2.5 cm. Suspicious for lymphadenopathy. Subcentimeter left iliac chain lymph nodes. Enlarged heterogeneous prostate gland measures 6.8 x 6.2 x 6.4 cm. Subcentimeter subpleural left lower lobe nodule. Recommended follow-up CT chest in 3-6 months. So follow-up CT scan done on February 20, 2020 showed left lower lobe nodule in the lung periphery measuring 0.5 cm and it is unchanged and has appearance of granuloma. And 0.14 cm left axillary lymph node seen again but stable no change when compared with previous scan. CT scan of chest done on showed 11/22/2018 stable appearance left lower lobe 5 mm groundglass nodule. Started on Casodex 50 mg by mouth daily and Zoladex 10.8 mg on 11/08/2018 And was referred to radiation oncology forr concurrent radiation therapy, which he started on 01/15/2019 and completed on 03/14/2019. And bicalutamide was also discontinued , now being high risk,treated with 3 monthly Zoladex alone Left axillary lymphadenopathy of uncertain clinical significance, size 14 mm questionable reactive Plan: Discussed with patient regarding his labs white blood count 7 hemoglobin 11.9 hematocrit 33.9 platelets 207,000 CMP within normal limits PSA 0.[address] scan of chest findings Clinically, patient is doing well with no signs symptom suggestive of recurrence/progression of disease, tolerating 3 monthly Zoladex well but with expected side effects e.g. off and on hot flashes. We will proceed with the next 3 monthly dose of Zoladex today return to clinic in 3 months in the meantime patient will continue with vitamin D and calcium supplement. Patient has history of subcentimeter left subpleural lung nodule and follow-up CT scan done on February 20, 2020 showed persistent 0.5 cm left lower lobe subpleural nodule which is unchanged and has appearance of granuloma. And he also has 0.14 cm left axillary lymph node which is stable too we will continue to monitor and repeat his CT scan of chest in 6 months to ensure no change. Mild anemia, hemoglobin stable we will continue to monitor. Return to clinic in 3 months with CBC and PSA Signed By: Natacha Mandel M.D. <<Signature on File>>
== END 2020-05-14 13:45 | disposition home or self-care (01) ==
LOC: ONCMED 13:49
PROVIDERS: PCP Nurse Practitioner; Visit Provider Internal Medicine Hematology & Oncology
DX: C61 Malignant neoplasm of prostate (principal); R97.20 Elevated prostate specific antigen [PSA]; D64.9 Anemia, unspecified; Z79.818 Long term (current) use of other agents affecting estrogen receptors and estrogen levels
CPT/HCPCS: 96372; 96402; 99214; J9202

== ENCOUNTER 2020-07-08 10:32 | Outpatient (CLI) | payer MEDICARE, OTHER, SELFPAY ==
--- NOTE | 2020-07-08 10:41 | XRR_ITS ---
PROCEDURE INFORMATION: Exam: XR Left Wrist Exam date and time: 07/08/2020 10:55 AM Age: 70 years old Clinical indication: Patient HX: C/O left wrist pain. HX of FX as a child; Additional info: M25.532 - pain in left wrist TECHNIQUE: Imaging protocol: XR Left wrist. Views: 3 or more views. COMPARISON: No relevant prior studies available. FINDINGS: Bones/joints: No fracture or other acute abnormalities are seen in the wrist. Prominent chronic osteoarthritis is present especially in the radioscaphoid joint and lunocapitate joint with prominent loss of the joint space and adjacent sclerosis and erosion.. Soft tissues: Normal. XR/XR wrist LT min 3V* [id number] IMPRESSION: Prominent chronic degenerative joint disease. No acute bone or joint abnormality.
--- NOTE | 2020-07-08 10:41 | XRR_ITS ---
PROCEDURE INFORMATION: Exam: XR Left Knee Exam date and time: 07/08/2020 10:55 AM Age: 70 years old Clinical indication: Patient HX: C/O pain left knee x 3/4 weeks. HX of prostate cancer; Additional info: M25.562 - pain in left knee TECHNIQUE: Imaging protocol: XR Left knee. Views: 3 views. COMPARISON: No relevant prior studies available. FINDINGS: Bones/joints: No fracture or other acute abnormalities are seen. Mild degenerative changes are present with mild medial joint space narrowing tiny osteophyte formation on the patella. Soft tissues: Normal. XR/XR knee LT 3V* [id number] IMPRESSION: Mild degenerative disease. No acute abnormality.
== END 2020-07-08 10:33 | disposition home or self-care (01) ==
LOC: RAD 10:39
PROVIDERS: PCP Nurse Practitioner; Visit Provider Nurse Practitioner Family
DX: M25.562 Pain in left knee (principal); M25.532 Pain in left wrist; G89.29 Other chronic pain
CPT/HCPCS: 73110; 73562

== ENCOUNTER → 2020-07-18 10:42 | Outpatient (BNVA) | payer MEDICARE, OTHER, SELFPAY | PROVIDERS: PCP Nurse Practitioner; Visit Provider Anesthesiology | DX: G89.29 Other chronic pain (principal); M47.812 Spondylosis without myelopathy or radiculopathy, cervical region; M25.511 Pain in right shoulder; M54.9 Dorsalgia, unspecified; M25.562 Pain in left knee; Z79.891 Long term (current) use of opiate analgesic; Z79.899 Other long term (current) drug therapy | CPT/HCPCS: 99214 ==

== ENCOUNTER 2020-07-28 12:18 | Outpatient (CLI) | payer MEDICARE, OTHER, SELFPAY ==
--- NOTE | 2020-07-28 13:00 | MR_ITS ---
WS: [id number] MRI LEFT KNEE HISTORY: M25.562 - Pain in left knee COMPARISON: None available. Anterior cruciate ligament: Intact. Posterior cruciate ligament: Intact. Medial collateral ligament: Mild increased signal and fluid on both sides of the MCL. No tear. Posterior lateral corner structures: Intact. Medial menisci: Small caliber posterior horn. Abnormal signal throughout the majority of the posterio r horn consistent with a tear. Anterior horn is normal. Lateral meniscus: Increased signal in a horizontal manner in the posterior horn. Increased signal lei s not extend to an articular surface. Extensor mechanism: Distal quadriceps tendon and patellar tendons are intact. Fluid and soft tissue: Moderate-sized suprapatellar joint effusion. There is additional moderate amou nt of soft tissue edema surrounding the knee. Moderate-sized Castro's cyst extends over length of 5.5 cm. Osseous and articular structures: Patellofemoral compartment: Marrow edema in the medial patellar facet with narrowing of the medial pa tellar facet joint and a focal defect in the patellar cartilage. Medial compartment: Near complete loss of cartilage in the medial compartment with bone upon bone. Di stribution of fluid in the cartilage of the femoral condyle suggest a demyelinating lesion centrally extending over a width of 6.6 mm. There is underlying marrow edema in the femoral condyle. Lateral compartment: Mild narrowing of the lateral compartment. Cartilage is preserved. No marrow kailey ma. MR/MR knee LT wo con* [id number] IMPRESSION: 1. Advanced degenerative changes in medial compartment. Near complete loss of cartilage with marrow edema and cortical irregularity involving the medial femo ral condyle. 2. Cartilage delamination noted in the medial femoral condyle. 3. Suprapatellar joint effusion, diffuse soft tissue edema and moderate Castro' s cyst. 4. Complex tear posterior horn medial meniscus. Diminutive meniscus remains. 5. Medial patellar facet joint space narrowing with underlying marrow edema an d a focal cartilage defect. Focal defect within the cartilage over the medial p atellar facet.
== END 2020-07-28 12:19 | disposition home or self-care (01) ==
PROVIDERS: PCP Nurse Practitioner; Visit Provider Nurse Practitioner Family
DX: S83.232A Complex tear of medial meniscus, current injury, left knee, initial encounter (principal); X58.XXXA Exposure to other specified factors, initial encounter; M25.462 Effusion, left knee
CPT/HCPCS: 73721

== ENCOUNTER → 2020-08-15 08:20 | Outpatient (BNVA) | payer MEDICARE, OTHER, SELFPAY | PROVIDERS: PCP Nurse Practitioner; Visit Provider Internal Medicine Hematology & Oncology | DX: E11.65 Type 2 diabetes mellitus with hyperglycemia (principal); Z79.4 Long term (current) use of insulin; E78.2 Mixed hyperlipidemia; C61 Malignant neoplasm of prostate | CPT/HCPCS: 80053; 80061; 83036; 83721; 84153; 85025 ==

== ENCOUNTER 2020-08-19 05:46 | Outpatient (CLI) | payer MEDICARE, OTHER, SELFPAY ==
--- NOTE | 2020-08-19 14:44 | ONC FU_ITS ---
Dr. Mandel follow up note Patient: Braden Sommer Unit #: [id number]: 1950 Dicatated By: Natacha Mandel M.D.Date of Visit:Aug 19, 2020 Onc Med Follow-up/Prog Note History of Present Illness: Mr. Braden Sommer, is a 70-year-old gentleman with history of elevated PSA recently on 09/22/2018 underwent TRUSP/biopsy and final pathology report showed in right lateral mid prostate, prostatic adenocarcinoma Mead score 4+4, microscopic focus and in right lateral base, prostatic adenocarcinoma Audelia score 3+4 again microscopic focus his PSA at that time diagnosis in September 2018 was 25.3. Patient had bone scan done on 10/11/2018 which showed no definite osteoblastic lesion but there were several areas of suspicious. And CT scan of abdomen pelvis done on 10/11/2018 also showed necrotic left obturator lymph node measuring 2.5 cm and subcentimeter left iliac chain lymph nodes and subcentimeter subpleural left lower lobe nodule Patient was given prescription for bicalutamide 50 mg by mouth daily by Dr. Gonzales.And the Zoladex was started on 11/08/2018 Concurrent radiation therapy to the prostate gland was added on 01/15/2019 And completed on 03/14/2019 Bicalutamide was discontinued because of severe hot flashes and sweating being high risk ,Now on Zoladex alone CT scan of chest done on 11/22/2018 showed stable appearance left lower lobe 5 mm groundglass nodule Left axillary lymphadenopathy of uncertain clinical significance size 14 mm Follow-up CT scan of chest done on February 20, 2020, showed there is a left lower lobe nodule in the lung periphery measuring 0.5 cm it is unchanged and has appearance of granuloma. And 0.14 cm left axillary lymph node has not changed. came For follow-up, denies any specific complaints, no fever chills, no nausea or vomiting, no diarrhea or constipation, no hot flashes, no new bony pains except left knee pain for which he underwent MRI scan on July 28, 2020 which showed advanced degenerative changes in the medial compartment. 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 Otherwise tolerating 3 monthly Zoladex well Medications: B12 Folate 1 Capsule (of 800-800 mcg) Oral daily, Calcium 1 Tablet (of 500 mg) Oral daily, DULoxetine HCl 1 Capsule (of 20 mg) Capsule Delayed Release Particles Oral b.i.d., Fenofibrate 1 Tablet (of 145 mg) Oral daily, Ibuprofen 2 Capsule (of 200 mg) Oral PRN, Levemir FlexTouch 40 Units (of 100 Units/L) Subcutaneous daily, Lipitor 1 Tablet (of 80 mg) Oral daily, Lisinopril 1 Tablet (of 10 mg) Oral daily, Magnesium 1 Tablet (of 250 mg) Oral daily, Multivitamin Adults 1 Tablet Oral daily, NovoLOG (100 Units/mL) Subcutaneous Take as Directed, traMADol HCl 1 Tablet (of 50 mg) Oral q 6 hours, Victoza Subcutaneous Allergies: No Known Allergies. Review of Systems: Review of Systems is not available for this patient. Vital Signs: Performed on Aug 19, 2020 14:11 Height - 73.00 in Weight - 204.4 lbs (LOW) BSA - 2.17 sq.m BMI - 26.97 Temperature - 97.5 F (LOW) Pulse - 95 /min Respiration - 18 /min BP - 144/71 mm(hg) (HIGH) O2 Sat - 95 % (LOW) Pain - 0 Performance Status: 1 - No physically strenuous activity, but ambulatory and able to carry out light or sedentary work (e.g. office work, light house work). (ECOG) Physical Examination: ENMT - No mouth sores, no thrush, no jaundice, Respiratory - Lungs are clear to auscultation, Cardiovascular - Regular rate and rhythm of heart, Abdomen - Soft, bowel sounds present, Extremities - No visible edema. Lab/Imaging: Test performed on Aug 15, 2020 08:21 WBC 7.5 10^9/L RBC 4.17 10^12/L HGB 12.5 g/dL HCT 37.7 % MCV 90.4 fl MCH 30.0 pg MCHC 33.2 g/dL RDW 12.6 % Platelet Count 234 10^9/L MPV 10.6 fL Neutrophils (Gran) 5.17 10^9/L Lymphocytes 1.7 10^9/L Monocytes 0.4 10^9/L Eosinophils 0.1 10^9/L Basophils 0.0 10^9/L Manual Lymphocytes 22.1 % Manual Monocytes 5.8 % Manual Eosinophils 1.9 % Manual Basophils 0.5 % PSA 0.006 ng/mL Test performed on May 12, 2020 08:23 Glucose 86 mg/dL BUN 26 mg/dL Creatinine 0.8 mg/dL Cr Clearance (Est) 109.78 mL/min Sodium 140 mmol/L Potassium 4.4 mmol/L Chloride 103 mmol/L CO2 26 mmol/L Calcium 9.9 mg/dL Protein, Total 6.6 g/dL Albumin 4.5 g/dL Globulin 2.1 g/dL Bilirubin, Total 0.7 mg/dL Alkaline Phosphatase 106 IU/L AST (SGOT) 25 IU/L ALT (SGPT) 26 IU/L Impression: Adenocarcinoma prostate status post TRUSP/biopsy on 09/22/2018 final pathology report showed adenocarcinoma in 2 cores e.g. right lateral mid, Audelia score 4+4, microscopic focus only and right lateral base Mead score 3+4 again microscopic focus, PSA at the time of diagnosis was 25.3 .Stage cT2b, N1 MX Bone scan done on 10/11/2018 showed no obvious bone metastases but right scapula focal activity with associated sclerotic focus could be osteoblastic lesion or prior trauma Increased activity overlaying the left inferior pubic ramus without associated osteoblastic lesion on CT pelvis same day CT scan of abdomen pelvis done on 10/11/2018 showed necrotic left obturator lymph node measuring 2.5 cm. Suspicious for lymphadenopathy. Subcentimeter left iliac chain lymph nodes. Enlarged heterogeneous prostate gland measures 6.8 x 6.2 x 6.4 cm. Subcentimeter subpleural left lower lobe nodule. Recommended follow-up CT chest in 3-6 months. So follow-up CT scan done on February 20, 2020 showed left lower lobe nodule in the lung periphery measuring 0.5 cm and it is unchanged and has appearance of granuloma. And 0.14 cm left axillary lymph node seen again but stable no change when compared with previous scan. CT scan of chest done on showed 11/22/2018 stable appearance left lower lobe 5 mm groundglass nodule. Started on Casodex 50 mg by mouth daily and Zoladex 10.8 mg on 11/08/2018 And was referred to radiation oncology forr concurrent radiation therapy, which he started on 01/15/2019 and completed on 03/14/2019. And bicalutamide was also discontinued , now being high risk,treated with 3 monthly Zoladex alone Left axillary lymphadenopathy of uncertain clinical significance, size 14 mm questionable reactive Plan: Discussed with patient regarding his labs white blood count 7.5 hemoglobin 12.5 hematocrit 37.7 platelets 234,000 PSA 0.006 Clinically, patient is doing well with no signs symptom suggestive of disease progression and follow-up PSA is still subzero and stable around 0.006. And patient is tolerating 3 monthly Zoladex well, will proceed with next 3 monthly dose of Zoladex today and then he will return to clinic in 3 months with CBC CMP and PSA and for Zoladex. Patient also has history of left lower lobe subpleural nodule and left axillary lymph node, now being monitored, will consider follow-up CT scan of chest in 3 months, prior to his next visit Signed By: Natacha Mandel M.D. <<Signature on File>>
[2020-08-19] MEDS: lidocaine 1% INJ 20 mL INJECTION (14:53)
[2020-08-19] MEDS: goserelin acetate 10.8 mg Implant IM (15:06)
== END 2020-08-19 05:47 | disposition home or self-care (01) ==
LOC: ONCMED 05:49
PROVIDERS: PCP Nurse Practitioner; Visit Provider Internal Medicine Hematology & Oncology
DX: R91.1 Solitary pulmonary nodule (principal); Z92.3 Personal history of irradiation; R59.0 Localized enlarged lymph nodes; M25.562 Pain in left knee
CPT/HCPCS: 96372; 96402; 99214; J9202

== ENCOUNTER → 2020-10-14 09:52 | Outpatient (BNVA) | payer MEDICARE, OTHER, SELFPAY | PROVIDERS: PCP Nurse Practitioner; Visit Provider Anesthesiology | DX: G89.29 Other chronic pain (principal); M54.9 Dorsalgia, unspecified; M47.812 Spondylosis without myelopathy or radiculopathy, cervical region; M25.511 Pain in right shoulder; M23.304 Other meniscus derangements, unspecified medial meniscus, left knee; Z79.899 Other long term (current) drug therapy; Z79.891 Long term (current) use of opiate analgesic | CPT/HCPCS: 99214 ==

== ENCOUNTER → 2020-11-17 11:24 | Outpatient (BNVA) | payer MEDICARE, BC, SELFPAY | PROVIDERS: PCP Nurse Practitioner; Visit Provider Nurse Practitioner | DX: E11.65 Type 2 diabetes mellitus with hyperglycemia (principal); E78.2 Mixed hyperlipidemia; I10 Essential (primary) hypertension; Z79.4 Long term (current) use of insulin; C61 Malignant neoplasm of prostate | CPT/HCPCS: 80053; 80061; 83036; 84153; 85025 ==

== ENCOUNTER 2020-11-18 13:42 | Outpatient (CLI) | payer MEDICARE, BC, SELFPAY ==
--- NOTE | 2020-11-18 13:50 | CT_ITS ---
WS: [id number] CT CHEST TECHNIQUE: Contrast enhanced CT of the chest with coronal and sagittal reformatted images. CLINICAL INFORMATION: PROSTATE CANCER COMPARISON: CT chest February 20, 2020 DLP: [id number] scans at [facility] use at least one of these dose optimization techniques: automat ed exposure control; mA and/or kV adjustment per patient size (includes targeted exams where dose is matched to clinical indication); or iterative reconstruction. FINDINGS: Noncalcified left lower lobe subpleural nodule measuring 5 mm unchanged since February 20, 2020. Additi onal tiny noncalcified opacity left lower lobe measuring 3 mm unchanged from previous.Calcified granu evelyn right lower lobe. Pleural thickening along the left fissure. No mediastinal or hilar lymphadenopathy. Enlarged left axillary lymph node measuring 1.5 cm unchanged . Adrenal glands are normal. Splenic granulomas. Normal GE junction. CT/CT chest w con* [id number] IMPRESSION: 1. 2 small noncalcified nodules left lower lobe measuring 3 mm and 5 mm are un changed from previous. Recommend 12 month follow-up. 2. Moderate chronic emphysematous changes. No acute pulmonary infiltrates. 3. No mediastinal or hilar lymphadenopathy. 4. Left axillary lymph node measuring 1.5 cm is unchanged.
[2020-11-18] MEDS: iohexol 300 mg/mL 100 mL Btl IV (14:36)
== END 2020-11-18 13:43 | disposition home or self-care (01) ==
PROVIDERS: PCP Nurse Practitioner; Visit Provider Internal Medicine Hematology & Oncology
DX: C61 Malignant neoplasm of prostate (principal); R91.1 Solitary pulmonary nodule
CPT/HCPCS: 71260; Q9967

== ENCOUNTER 2020-11-19 05:46 | Outpatient (CLI) | payer MEDICARE, BC, SELFPAY ==
[2020-11-19] MEDS: lidocaine 1% INJ 20 mL INJECTION (09:30)
[2020-11-19] MEDS: goserelin acetate 10.8 mg Implant SUBCUT (09:43)
--- NOTE | 2020-11-19 09:59 | ONC FU_ITS ---
Dr. Mandel follow up note Patient: Braden Sommer Unit #: [id number]: 1950 Dicatated By: Natacha Mandel M.D.Date of Visit:November 19, 2020 Onc Med Follow-up/Prog Note History of Present Illness: Mr. Braden Sommer, is a 70-year-old gentleman with history of elevated PSA recently on 09/22/2018 underwent TRUSP/biopsy and final pathology report showed in right lateral mid prostate, prostatic adenocarcinoma Afton score 4+4, microscopic focus and in right lateral base, prostatic adenocarcinoma Audelia score 3+4 again microscopic focus his PSA at that time diagnosis in September 2018 was 25.3. Patient had bone scan done on 10/11/2018 which showed no definite osteoblastic lesion but there were several areas of suspicious. And CT scan of abdomen pelvis done on 10/11/2018 also showed necrotic left obturator lymph node measuring 2.5 cm and subcentimeter left iliac chain lymph nodes and subcentimeter subpleural left lower lobe nodule Patient was given prescription for bicalutamide 50 mg by mouth daily by Dr. Gonzales.And the Zoladex was started on 11/08/2018 Concurrent radiation therapy to the prostate gland was added on 01/15/2019 And completed on 03/14/2019 Bicalutamide was discontinued because of severe hot flashes and sweating being high risk ,Now on Zoladex alone CT scan of chest done on 11/22/2018 showed stable appearance left lower lobe 5 mm groundglass nodule Left axillary lymphadenopathy of uncertain clinical significance size 14 mm Follow-up CT scan of chest done on February 20, 2020, showed there is a left lower lobe nodule in the lung periphery measuring 0.5 cm it is unchanged and has appearance of granuloma. And 0.14 cm left axillary lymph node has not changed. Follow-up CT scan of chest done on November 18, 2020 showed 2 small noncalcified nodules left lower lobe measuring 3 mm and 5 mm are unchanged, left axillary lymph node measuring 1.5 cm is unchanged. Moderate chronic emphysema. No mediastinal or hilar lymphadenopathy Came for follow-up, denies any specific complaint except off and on skipping heartbeat for which he is being evaluated by PMD, as per patient he had EKG done which did not show any abnormality and now scheduled to see his PMD in the morning. Denies any fever chills, no nausea or vomiting diarrhea or constipation denies any melena or hematochezia, denies any hemoptysis hematemesis denies any jaundice denies any shortness of breath, occasionally hot flashes otherwise tolerating 3 monthly Zoladex well Medications: B12 Folate 1 Capsule (of 800-800 mcg) Oral daily, Calcium 1 Tablet (of 500 mg) Oral daily, DULoxetine HCl 1 Capsule (of 20 mg) Capsule Delayed Release Particles Oral b.i.d., Fenofibrate 1 Tablet (of 145 mg) Oral daily, Ibuprofen 2 Capsule (of 200 mg) Oral PRN, Levemir FlexTouch 40 Units (of 100 Units/L) Subcutaneous daily, Lipitor 1 Tablet (of 80 mg) Oral daily, Lisinopril 1 Tablet (of 10 mg) Oral daily, Magnesium 1 Tablet (of 250 mg) Oral daily, Multivitamin Adults 1 Tablet Oral daily, NovoLOG (100 Units/mL) Subcutaneous Take as Directed, traMADol HCl 1 Tablet (of 50 mg) Oral q 6 hours, Victoza Subcutaneous Allergies: No Known Allergies. Review of Systems: Review of Systems is not available for this patient. Vital Signs: Performed on November 19, 2020 09:11 Height - 73.00 in Weight - 201.2 lbs (LOW) BSA - 2.16 sq.m BMI - 26.55 Temperature - 97.5 F (LOW) Pulse - 78 /min Respiration - 18 /min BP - 154/84 mm(hg) (HIGH) O2 Sat - 96 % Pain - 0 Fatigue - 5 Performance Status: 0 - Fully active, able to carry on all predisease activities without restrictions. (ECOG) Physical Examination: ENMT - No mouth sores, no thrush, no jaundice, Respiratory - Lungs are clear to auscultation, Cardiovascular - Regular rate and rhythm of heart, Abdomen - Soft, bowel sounds present, Extremities - No visible edema or rash. Lab/Imaging: Test performed on November 17, 2020 11:24 Cholesterol, Total 208 mg/dL Sodium 136 mmol/L Potassium 3.8 mmol/L Triglycerides 166 mg/dL Chloride 103 mmol/L Est Avg Glucose (eAG) 160 mg/dL LDL Cholesterol 110 mg/dL CO2 23 mmol/L Anion Gap 13.8 HDL Cholesterol 65 mg/dL BUN 22 mg/dL Cholesterol/HDL Ratio 3.2 Creatinine 0.8 mg/dL Cr Clearance (Est) 107.7400 mL/min Glucose 205 mg/dL Osmolality - Calculated 291 mOsm/kg Calcium 9.0 mg/dL Protein, Total 6.7 g/dL Albumin 4.6 g/dL Globulin 2.1 g/dL Bilirubin, Total 0.7 mg/dL ALT (SGPT) 16 Units/L AST (SGOT) 17 Units/L Alkaline Phosphatase 81 IU/L Hemoglobin A1C % 7.2 % WBC 6.5 10^3/uL RBC 4.17 10^6/uL HGB 12.6 g/dL HCT 38.0 % MCV 91.1 fl MCH 30.2 pg MCHC 33.2 g/dL RDW 12.3 % Platelet Count 235 10^3/uL MPV 10.6 fl Neutrophils 4.04 10^3/uL Lymphocytes 1.8 10^3/uL Monocytes 0.4 10^3/uL Eosinophils 0.2 10^3/uL Basophils 0.0 10^3/uL Neutrophil % 62.0 % Lymphocyte % 28.1 % Monocyte % 6.3 % Eosinophil % 2.5 % Basophils % 0.6 % NRBC 0.0 /100 WBC NRBC % 0 % PSA 0.006 ng/mL Test performed on Aug 15, 2020 08:21 Manual Lymphocytes 22.1 % Manual Monocytes 5.8 % Manual Eosinophils 1.9 % Manual Basophils 0.5 % Impression: Adenocarcinoma prostate status post TRUSP/biopsy on 09/22/2018 final pathology report showed adenocarcinoma in 2 cores e.g. right lateral mid, Audelia score 4+4, microscopic focus only and right lateral base Audelia score 3+4 again microscopic focus, PSA at the time of diagnosis was 25.3 .Stage cT2b, N1 MX Bone scan done on 10/11/2018 showed no obvious bone metastases but right scapula focal activity with associated sclerotic focus could be osteoblastic lesion or prior trauma Increased activity overlaying the left inferior pubic ramus without associated osteoblastic lesion on CT pelvis same day CT scan of abdomen pelvis done on 10/11/2018 showed necrotic left obturator lymph node measuring 2.5 cm. Suspicious for lymphadenopathy. Subcentimeter left iliac chain lymph nodes. Enlarged heterogeneous prostate gland measures 6.8 x 6.2 x 6.4 cm. Subcentimeter subpleural left lower lobe nodule. Recommended follow-up CT chest in 3-6 months. So follow-up CT scan done on February 20, 2020 showed left lower lobe nodule in the lung periphery measuring 0.5 cm and it is unchanged and has appearance of granuloma. And 0.14 cm left axillary lymph node seen again but stable no change when compared with previous scan. CT scan of chest done on showed 11/22/2018 stable appearance left lower lobe 5 mm groundglass nodule. Follow-up CT scan of chest done on November 18, 2020 showed 2 small noncalcified nodules left lower lobe measuring 3 mm and 5 mm unchanged, left axillary lymph node measuring 1.5 cm unchanged, moderate emphysema. Started on Casodex 50 mg by mouth daily and Zoladex 10.8 mg on 11/08/2018 And was referred to radiation oncology forr concurrent radiation therapy, which he started on 01/15/2019 and completed on 03/14/2019. And bicalutamide was also discontinued , now being high risk,treated with 3 monthly Zoladex alone Left axillary lymphadenopathy of uncertain clinical significance, size 14 mm questionable reactive Plan: Discussed with patient regarding his labs white blood count 6.5 hemoglobin 12.6 hematocrit 38 platelets 235,000 CMP within normal limits glucose 205 and PSA 0.006, follow-up CT scan of chest shows persistent subcentimeter noncalcified nodules in the left lower lobe, stable and persistent left axillary lymph node 1.5 cm is also unchanged and chronic emphysema Clinically, patient doing well with no new signs symptoms tolerating adjuvant Zoladex every 3 months well but with expected side effect like off and on hot flashes. His follow-up lab work-up shows PSA is subzero and stable. We will proceed with his next 3 monthly dose of Zoladex and then return to clinic in 3 months with PSA. As far as skipping heartbeat is concerned, patient being evaluated by PMD,. His follow-up CT scan of chest showed stable 2 small noncalcified nodules in left lower lobe and lymph node in left axilla which showed no change, will continue to monitor and repeat his CT scan of chest in 1 year. Signed By: Natacha Mandel M.D. <<Signature on File>>
== END 2020-11-19 05:47 | disposition home or self-care (01) ==
LOC: ONCMED 05:48
PROVIDERS: PCP Nurse Practitioner; Visit Provider Internal Medicine Hematology & Oncology
DX: C61 Malignant neoplasm of prostate (principal); C79.51 Secondary malignant neoplasm of bone; C77.8 Secondary and unspecified malignant neoplasm of lymph nodes of multiple regions; C78.02 Secondary malignant neoplasm of left lung; R97.20 Elevated prostate specific antigen [PSA]; I49.9 Cardiac arrhythmia, unspecified; Z79.818 Long term (current) use of other agents affecting estrogen receptors and estrogen levels
CPT/HCPCS: 96372; 96402; 99215; J9202

== ENCOUNTER → 2021-01-16 12:33 | Outpatient (BNVA) | payer MEDICARE, BC, SELFPAY | PROVIDERS: PCP Nurse Practitioner; Visit Provider Anesthesiology | DX: G89.29 Other chronic pain (principal); M54.5 Low back pain; M47.812 Spondylosis without myelopathy or radiculopathy, cervical region; M25.511 Pain in right shoulder; F17.210 Nicotine dependence, cigarettes, uncomplicated; Z79.891 Long term (current) use of opiate analgesic | CPT/HCPCS: 99214 ==

== ENCOUNTER 2021-02-10 09:58 | Outpatient (CLI) | payer MEDICARE, BC, SELFPAY ==
[2021-02-10 11:15] LABS: Alanine Aminotransferase 18 U/L (0-41); Albumin Level 4.3 g/dL (3.5-5.2); Alkaline Phosphatase 94 IU/L (40-130); Anion Gap 17.2 (5-19); Aspartate Amino Transferase 18 U/L (0-40); Blood Urea Nitrogen 21 mg/dL (8-23); Calcium 9.2 mg/dL (8.5-10.5); Carbon Dioxide 24 mmol/L (22-29); Chloride 103 mmol/L (98-107); Globulin 2.1 g/dL (1.3-4.6); Glucose 129 mg/dL (65-115); Osmolality Calculated 295 mOsm/kg (285-295); Potassium 4.2 mmol/L (3.5-5.1); Sodium 140 mmol/L (136-145); Total Bilirubin 0.5 mg/dL (0.15-1.2); Total Protein 6.4 g/dL (6.6-8.7)
[2021-02-10 11:31] LABS: Prostate Specific Antigen 0.006 ng/mL (0-4)
[2021-02-10 11:32] LABS: Estmated Average Glucose 183
== END 2021-02-10 09:59 | disposition home or self-care (01) ==
PROVIDERS: Absent Provider Nurse Practitioner; PCP Nurse Practitioner; Visit Provider Internal Medicine Hematology & Oncology
DX: C61 Malignant neoplasm of prostate (principal); E11.65 Type 2 diabetes mellitus with hyperglycemia; Z79.4 Long term (current) use of insulin
CPT/HCPCS: 36415; 80053; 83036; 84153

== ENCOUNTER 2021-02-16 05:54 | Outpatient (CLI) | payer MEDICARE, BC, SELFPAY ==
--- NOTE | 2021-02-16 14:05 | ONC FU_ITS ---
Dr. Mandel follow up note Patient: Braden Sommer Unit #: [id number]: 1950 Dicatated By: Natacha Mandel M.D.Date of Visit:Feb 16, 2021 Onc Med Follow-up/Prog Note History of Present Illness: Mr. Braden Sommer, is a 70-year-old gentleman with history of elevated PSA recently on 09/22/2018 underwent TRUSP/biopsy and final pathology report showed in right lateral mid prostate, prostatic adenocarcinoma Stuart score 4+4, microscopic focus and in right lateral base, prostatic adenocarcinoma Audelia score 3+4 again microscopic focus his PSA at that time diagnosis in September 2018 was 25.3. Patient had bone scan done on 10/11/2018 which showed no definite osteoblastic lesion but there were several areas of suspicious. And CT scan of abdomen pelvis done on 10/11/2018 also showed necrotic left obturator lymph node measuring 2.5 cm and subcentimeter left iliac chain lymph nodes and subcentimeter subpleural left lower lobe nodule Patient was given prescription for bicalutamide 50 mg by mouth daily by Dr. Gonzales.And the Zoladex was started on 11/08/2018 Concurrent radiation therapy to the prostate gland was added on 01/15/2019 And completed on 03/14/2019 Bicalutamide was discontinued because of severe hot flashes and sweating being high risk ,Now on Zoladex alone CT scan of chest done on 11/22/2018 showed stable appearance left lower lobe 5 mm groundglass nodule Left axillary lymphadenopathy of uncertain clinical significance size 14 mm Follow-up CT scan of chest done on February 20, 2020, showed there is a left lower lobe nodule in the lung periphery measuring 0.5 cm it is unchanged and has appearance of granuloma. And 0.14 cm left axillary lymph node has not changed. Follow-up CT scan of chest done on November 18, 2020 showed 2 small noncalcified nodules left lower lobe measuring 3 mm and 5 mm are unchanged, left axillary lymph node measuring 1.5 cm is unchanged. Moderate chronic emphysema. No mediastinal or hilar lymphadenopathy Came for follow-up, denies any specific complaints, no fever chills, no nausea or vomiting, no diarrhea constipation, no new bony pains, no dysuria or hematuria, occasional hot flashes, otherwise tolerating 3 monthly Zoladex well Medications: B12 Folate 1 Capsule (of 800-800 mcg) Oral daily, Calcium 1 Tablet (of 500 mg) Oral daily, DULoxetine HCl 1 Capsule (of 20 mg) Capsule Delayed Release Particles Oral b.i.d., Fenofibrate 1 Tablet (of 145 mg) Oral daily, Ibuprofen 2 Capsule (of 200 mg) Oral PRN, Levemir FlexTouch 40 Units (of 100 Units/L) Subcutaneous daily, Lipitor 1 Tablet (of 80 mg) Oral daily, Lisinopril 1 Tablet (of 10 mg) Oral daily, Magnesium 1 Tablet (of 250 mg) Oral daily, Multivitamin Adults 1 Tablet Oral daily, NovoLOG (100 Units/mL) Subcutaneous Take as Directed, traMADol HCl 1 Tablet (of 50 mg) Oral q 6 hours, Victoza Subcutaneous Allergies: No Known Allergies. Review of Systems: Review of Systems is not available for this patient. Vital Signs: Performed on Feb 16, 2021 13:50 Height - 73.00 in Weight - 201.4 lbs (HIGH) BSA - 2.16 sq.m BMI - 26.57 Temperature - 97.6 F (LOW) Pulse - 73 /min Respiration - 18 /min BP - 146/70 mm(hg) (HIGH) O2 Sat - 96 % Pain - 0 Performance Status: 0 - Fully active, able to carry on all predisease activities without restrictions. (ECOG) Physical Examination: ENMT - No mouth sores, no thrush, no jaundice, Respiratory - Lungs are clear to auscultation, Cardiovascular - Regular rate and rhythm of heart, Abdomen - Soft, bowel sounds present, Extremities - No visible edema. Lab/Imaging: Test performed on November 17, 2020 11:24 Cholesterol, Total 208 mg/dL Sodium 136 mmol/L Potassium 3.8 mmol/L Triglycerides 166 mg/dL Chloride 103 mmol/L Est Avg Glucose (eAG) 160 mg/dL LDL Cholesterol 110 mg/dL CO2 23 mmol/L Anion Gap 13.8 HDL Cholesterol 65 mg/dL BUN 22 mg/dL Cholesterol/HDL Ratio 3.2 Creatinine 0.8 mg/dL Cr Clearance (Est) 107.7400 mL/min Glucose 205 mg/dL Osmolality - Calculated 291 mOsm/kg Calcium 9.0 mg/dL Protein, Total 6.7 g/dL Albumin 4.6 g/dL Globulin 2.1 g/dL Bilirubin, Total 0.7 mg/dL ALT (SGPT) 16 Units/L AST (SGOT) 17 Units/L Alkaline Phosphatase 81 IU/L Hemoglobin A1C % 7.2 % WBC 6.5 10^3/uL RBC 4.17 10^6/uL HGB 12.6 g/dL HCT 38.0 % MCV 91.1 fl MCH 30.2 pg MCHC 33.2 g/dL RDW 12.3 % Platelet Count 235 10^3/uL MPV 10.6 fl Neutrophils 4.04 10^3/uL Lymphocytes 1.8 10^3/uL Monocytes 0.4 10^3/uL Eosinophils 0.2 10^3/uL Basophils 0.0 10^3/uL Neutrophil % 62.0 % Lymphocyte % 28.1 % Monocyte % 6.3 % Eosinophil % 2.5 % Basophils % 0.6 % NRBC 0.0 /100 WBC NRBC % 0 % PSA 0.006 ng/mL Impression: Adenocarcinoma prostate status post TRUSP/biopsy on 09/22/2018 final pathology report showed adenocarcinoma in 2 cores e.g. right lateral mid, Stuart score 4+4, microscopic focus only and right lateral base Stuart score 3+4 again microscopic focus, PSA at the time of diagnosis was 25.3 .Stage cT2b, N1 MX Bone scan done on 10/11/2018 showed no obvious bone metastases but right scapula focal activity with associated sclerotic focus could be osteoblastic lesion or prior trauma Increased activity overlaying the left inferior pubic ramus without associated osteoblastic lesion on CT pelvis same day CT scan of abdomen pelvis done on 10/11/2018 showed necrotic left obturator lymph node measuring 2.5 cm. Suspicious for lymphadenopathy. Subcentimeter left iliac chain lymph nodes. Enlarged heterogeneous prostate gland measures 6.8 x 6.2 x 6.4 cm. Subcentimeter subpleural left lower lobe nodule. Recommended follow-up CT chest in 3-6 months. So follow-up CT scan done on February 20, 2020 showed left lower lobe nodule in the lung periphery measuring 0.5 cm and it is unchanged and has appearance of granuloma. And 0.14 cm left axillary lymph node seen again but stable no change when compared with previous scan. CT scan of chest done on showed 11/22/2018 stable appearance left lower lobe 5 mm groundglass nodule. Follow-up CT scan of chest done on November 18, 2020 showed 2 small noncalcified nodules left lower lobe measuring 3 mm and 5 mm unchanged, left axillary lymph node measuring 1.5 cm unchanged, moderate emphysema. Started on Casodex 50 mg by mouth daily and Zoladex 10.8 mg on 11/08/2018 And was referred to radiation oncology forr concurrent radiation therapy, which he started on 01/15/2019 and completed on 03/14/2019. And bicalutamide was also discontinued , now being high risk,treated with 3 monthly Zoladex alone Left axillary lymphadenopathy of uncertain clinical significance, size 14 mm questionable reactive Plan: Discussed with patient regarding his labs, PSA 0.006 Clinically, patient doing well with no new signs symptoms history of recurrence of disease, tolerating 3 monthly Zoladex well, will proceed with next dose today return to clinic in 3 months with CMP and PSA and for Zoladex Signed By: Natacha Mandel M.D. <<Signature on File>>
[2021-02-16] MEDS: lidocaine 1% INJ 20 mL INJECTION (14:13)
[2021-02-16] MEDS: goserelin acetate 10.8 mg Implant SUBCUT (14:24)
== END 2021-02-16 05:55 | disposition home or self-care (01) ==
LOC: ONCMED 05:58
PROVIDERS: PCP Nurse Practitioner; Visit Provider Internal Medicine Hematology & Oncology
DX: Z51.11 Encounter for antineoplastic chemotherapy (principal); C61 Malignant neoplasm of prostate; C79.51 Secondary malignant neoplasm of bone; C78.02 Secondary malignant neoplasm of left lung; J43.9 Emphysema, unspecified; R97.20 Elevated prostate specific antigen [PSA]; R59.0 Localized enlarged lymph nodes; Z79.899 Other long term (current) drug therapy
CPT/HCPCS: 96372; 96402; 99215; J9202

== ENCOUNTER 2021-02-16 12:53 | Outpatient (CLI) | payer MEDICARE, BC, SELFPAY ==
[2021-02-16 13:42] LABS: Add Urine Microscopic? NO; Charge for UA Resulting for Rev
[2021-02-16 14:48] LABS: Bilirubin Urine Neg (Negative); Blood Urine Neg (Negative); Glucose Urine UA 4+ (Normal); Ketones Urine Negative (Negative); Leukocyte Esterase Urine Negative (Negative); Nitrate Urine Negative (Negative); Protein Urine Neg (Negative); Specific Gravity, Urine 1.015 (1.005-1.030); Urine Appearance Clear (CLEAR); Urine Color Yellow (Yellow); Urobilinogen Urine 4 mg/dL (Negative); pH Urine 6 (5-7)
== END 2021-02-16 12:54 | disposition home or self-care (01) ==
PROVIDERS: PCP Nurse Practitioner; Visit Provider Nurse Practitioner
DX: E11.65 Type 2 diabetes mellitus with hyperglycemia (principal); Z79.4 Long term (current) use of insulin
CPT/HCPCS: 36415; 81003

== ENCOUNTER → 2021-03-27 13:41 | Outpatient (BNVA) | payer MEDICARE, BC, SELFPAY | PROVIDERS: PCP Nurse Practitioner; Visit Provider Anesthesiology | DX: G89.29 Other chronic pain (principal); M54.5 Low back pain; M47.812 Spondylosis without myelopathy or radiculopathy, cervical region; M25.511 Pain in right shoulder; Z79.891 Long term (current) use of opiate analgesic | CPT/HCPCS: 99214 ==

== ENCOUNTER → 2021-04-01 09:46 | Outpatient (BNVA) | payer MEDICARE, BC, SELFPAY | PROVIDERS: PCP Nurse Practitioner; Visit Provider Nurse Practitioner | DX: E11.65 Type 2 diabetes mellitus with hyperglycemia (principal); Z79.4 Long term (current) use of insulin | CPT/HCPCS: 80048; 81000 ==

== ENCOUNTER → 2021-05-12 09:28 | Outpatient (BNVA) | payer MEDICARE, BC, SELFPAY | PROVIDERS: PCP Nurse Practitioner; Visit Provider Internal Medicine Hematology & Oncology | DX: C61 Malignant neoplasm of prostate (principal); E11.65 Type 2 diabetes mellitus with hyperglycemia; Z79.4 Long term (current) use of insulin; Z79.899 Other long term (current) drug therapy | CPT/HCPCS: 80053; 80061; 83036; 84153 ==

== ENCOUNTER 2021-05-14 14:12 | Outpatient (CLI) | payer MEDICARE, BC, SELFPAY ==
[2021-05-14] MEDS: lidocaine 1% INJ 20 mL INJECTION (14:58)
--- NOTE | 2021-05-14 15:07 | ONC FU_ITS ---
Dr. Mandel follow up note Patient: Braden Sommer Unit #: [id number]: 1950 Dicatated By: Natacha Mandel M.D.Date of Visit:May 14, 2021 Onc Med Follow-up/Prog Note History of Present Illness: Mr. Braden Sommer, is a 71-year-old gentleman with history of elevated PSA recently on 09/22/2018 underwent TRUSP/biopsy and final pathology report showed in right lateral mid prostate, prostatic adenocarcinoma [place] score 4+4, microscopic focus and in right lateral base, prostatic adenocarcinoma Audelia score 3+4 again microscopic focus his PSA at that time diagnosis in September 2018 was 25.3. Patient had bone scan done on 10/11/2018 which showed no definite osteoblastic lesion but there were several areas of suspicious. And CT scan of abdomen pelvis done on 10/11/2018 also showed necrotic left obturator lymph node measuring 2.5 cm and subcentimeter left iliac chain lymph nodes and subcentimeter subpleural left lower lobe nodule Patient was given prescription for bicalutamide 50 mg by mouth daily by Dr. Gonzales.And the Zoladex was started on 11/08/2018 Concurrent radiation therapy to the prostate gland was added on 01/15/2019 And completed on 03/14/2019 Bicalutamide was discontinued because of severe hot flashes and sweating being high risk ,Now on Zoladex alone CT scan of chest done on 11/22/2018 showed stable appearance left lower lobe 5 mm groundglass nodule Left axillary lymphadenopathy of uncertain clinical significance size 14 mm Follow-up CT scan of chest done on February 20, 2020, showed there is a left lower lobe nodule in the lung periphery measuring 0.5 cm it is unchanged and has appearance of granuloma. And 0.14 cm left axillary lymph node has not changed. Follow-up CT scan of chest done on November 18, 2020 showed 2 small noncalcified nodules left lower lobe measuring 3 mm and 5 mm are unchanged, left axillary lymph node measuring 1.5 cm is unchanged. Moderate chronic emphysema. No mediastinal or hilar lymphadenopathy Came for follow-up, denies any specific complaints, no fever chills, no nausea or vomiting, no diarrhea constipation, no dysuria no hematuria, no new bony pains, tolerating 3 monthly Zoladex well except with expected side effects like occasionally hot flashes but tolerable. Medications: B12 Folate 1 Capsule (of 800-800 mcg) Oral daily, Calcium 1 Tablet (of 500 mg) Oral daily, DULoxetine HCl 1 Capsule (of 20 mg) Capsule Delayed Release Particles Oral b.i.d., Fenofibrate 1 Tablet (of 145 mg) Oral daily, Ibuprofen 2 Capsule (of 200 mg) Oral PRN, Levemir FlexTouch 40 Units (of 100 Units/L) Subcutaneous daily, Lipitor 1 Tablet (of 80 mg) Oral daily, Lisinopril 1 Tablet (of 10 mg) Oral daily, Magnesium 1 Tablet (of 250 mg) Oral daily, Multivitamin Adults 1 Tablet Oral daily, NovoLOG (100 Units/mL) Subcutaneous Take as Directed, traMADol HCl 1 Tablet (of 50 mg) Oral q 6 hours, Victoza Subcutaneous Allergies: No Known Allergies. Review of Systems: Review of Systems is not available for this patient. Vital Signs: Performed on May 14, 2021 14:28 Height - 73.00 in Weight - 204 lbs (HIGH) BSA - 2.17 sq.m BMI - 26.91 Temperature - 97.0 F (LOW) Pulse - 71 /min Respiration - 18 /min BP - 134/67 mm(hg) O2 Sat - 96 % Pain - 0 Fatigue - 3 Performance Status: 0 - Fully active, able to carry on all predisease activities without restrictions. (ECOG) Physical Examination: ENMT - No mouth sores, no thrush, no jaundice, Respiratory - Lungs are clear to auscultation, Cardiovascular - Regular rate and rhythm of heart, Abdomen - Soft, bowel sounds present, Extremities - No visible edema. Lab/Imaging: Test performed on May 12, 2021 13:27 Glucose 107 mg/dL BUN 22 mg/dL Creatinine 0.7 mg/dL Cr Clearance (Est) 123.0100 mL/min Sodium 136 mmol/L Potassium 4.2 mmol/L Chloride 99 mmol/L CO2 26 mmol/L Calcium 9.5 mg/dL Protein, Total 6.6 g/dL Albumin 4.6 g/dL Globulin 2.0 g/dL Bilirubin, Total 0.6 mg/dL Alkaline Phosphatase 94 International Units/L AST (SGOT) 15 International Units/L ALT (SGPT) 16 International Units/L Hemoglobin A1C 7.9 % PSA 0.006 ng/mL Test performed on November 17, 2020 11:24 Cholesterol, Total 208 mg/dL Triglycerides 166 mg/dL Est Avg Glucose (eAG) 160 mg/dL LDL Cholesterol 110 mg/dL Anion Gap 13.8 HDL Cholesterol 65 mg/dL Cholesterol/HDL Ratio 3.2 Osmolality - Calculated 291 mOsm/kg WBC 6.5 10^3/uL RBC 4.17 10^6/uL HGB 12.6 g/dL HCT 38.0 % MCV 91.1 fl MCH 30.2 pg MCHC 33.2 g/dL RDW 12.3 % Platelet Count 235 10^3/uL MPV 10.6 fl Neutrophils 4.04 10^3/uL Lymphocytes 1.8 10^3/uL Monocytes 0.4 10^3/uL Eosinophils 0.2 10^3/uL Basophils 0.0 10^3/uL Neutrophil % 62.0 % Lymphocyte % 28.1 % Monocyte % 6.3 % Eosinophil % 2.5 % Basophils % 0.6 % NRBC 0.0 /100 WBC NRBC % 0 % Impression: Adenocarcinoma prostate status post TRUSP/biopsy on 09/22/2018 final pathology report showed adenocarcinoma in 2 cores e.g. right lateral mid, [place] score 4+4, microscopic focus only and right lateral base Audelia score 3+4 again microscopic focus, PSA at the time of diagnosis was 25.3 .Stage cT2b, N1 MX Bone scan done on 10/11/2018 showed no obvious bone metastases but right scapula focal activity with associated sclerotic focus could be osteoblastic lesion or prior trauma Increased activity overlaying the left inferior pubic ramus without associated osteoblastic lesion on CT pelvis same day CT scan of abdomen pelvis done on 10/11/2018 showed necrotic left obturator lymph node measuring 2.5 cm. Suspicious for lymphadenopathy. Subcentimeter left iliac chain lymph nodes. Enlarged heterogeneous prostate gland measures 6.8 x 6.2 x 6.4 cm. Subcentimeter subpleural left lower lobe nodule. Recommended follow-up CT chest in 3-6 months. So follow-up CT scan done on February 20, 2020 showed left lower lobe nodule in the lung periphery measuring 0.5 cm and it is unchanged and has appearance of granuloma. And 0.14 cm left axillary lymph node seen again but stable no change when compared with previous scan. CT scan of chest done on showed 11/22/2018 stable appearance left lower lobe 5 mm groundglass nodule. Follow-up CT scan of chest done on November 18, 2020 showed 2 small noncalcified nodules left lower lobe measuring 3 mm and 5 mm unchanged, left axillary lymph node measuring 1.5 cm unchanged, moderate emphysema. Started on Casodex 50 mg by mouth daily and Zoladex 10.8 mg on 11/08/2018 And was referred to radiation oncology forr concurrent radiation therapy, which he started on 01/15/2019 and completed on 03/14/2019. And bicalutamide was also discontinued , now being high risk,treated with 3 monthly Zoladex alone Left axillary lymphadenopathy of uncertain clinical significance, size 14 mm questionable reactive Plan: Discussed with patient regarding his labs CMP within normal limits PSA 0.006 Clinically, patient doing well with no new signs symptom suggestive of disease progression,And PSA is stable, tolerating adjuvant therapy with 3 monthly Zoladex well, will proceed with the next 3 monthly dose today and then return to clinic in 3 months with PSA Signed By: Natacha Mandel M.D. <<Signature on File>>
[2021-05-14] MEDS: goserelin acetate 10.8 mg Implant SUBCUT (15:10)
== END 2021-05-14 14:13 | disposition home or self-care (01) ==
PROVIDERS: PCP Nurse Practitioner; Visit Provider Internal Medicine Hematology & Oncology
DX: C61 Malignant neoplasm of prostate (principal); R97.20 Elevated prostate specific antigen [PSA]; N40.0 Benign prostatic hyperplasia without lower urinary tract symptoms; R59.0 Localized enlarged lymph nodes; Z79.818 Long term (current) use of other agents affecting estrogen receptors and estrogen levels
CPT/HCPCS: 96372; 96402; 99215; J9202

== ENCOUNTER → 2021-05-26 10:14 | Outpatient (BNVA) | payer MEDICARE, BC, SELFPAY | PROVIDERS: PCP Nurse Practitioner; Visit Provider Nurse Practitioner | DX: E78.2 Mixed hyperlipidemia (principal); E11.65 Type 2 diabetes mellitus with hyperglycemia; I10 Essential (primary) hypertension; I49.3 Ventricular premature depolarization; M47.812 Spondylosis without myelopathy or radiculopathy, cervical region; Z79.4 Long term (current) use of insulin | CPT/HCPCS: 81000 ==

== ENCOUNTER → 2021-08-11 09:45 | Outpatient (BNVA) | payer MEDICARE, BC, SELFPAY | PROVIDERS: PCP Nurse Practitioner; Visit Provider Internal Medicine Hematology & Oncology | DX: C61 Malignant neoplasm of prostate (principal); E11.65 Type 2 diabetes mellitus with hyperglycemia; I10 Essential (primary) hypertension; Z79.4 Long term (current) use of insulin | CPT/HCPCS: 80053; 80061; 83036; 84153 ==

== ENCOUNTER 2021-08-17 12:49 | Outpatient (CLI) | payer MEDICARE, BC, SELFPAY ==
[2021-08-17] MEDS: lidocaine 1% INJ 20 mL INJECTION (14:21)
[2021-08-17] MEDS: goserelin acetate 10.8 mg Implant SUBCUT (14:32)
== END 2021-08-17 12:50 | disposition home or self-care (01) ==
LOC: NEURO 12:55 → ONCMED 13:24
PROVIDERS: PCP Nurse Practitioner; Visit Provider Nurse Practitioner Family
DX: C61 Malignant neoplasm of prostate (principal); C79.51 Secondary malignant neoplasm of bone; R59.0 Localized enlarged lymph nodes; R91.1 Solitary pulmonary nodule; Z79.818 Long term (current) use of other agents affecting estrogen receptors and estrogen levels
CPT/HCPCS: 96372; 96402; 99215; J9202

== ENCOUNTER → 2021-08-18 09:56 | Outpatient (BNVA) | payer MEDICARE, BC, SELFPAY | PROVIDERS: PCP Nurse Practitioner; Visit Provider Nurse Practitioner | DX: E78.2 Mixed hyperlipidemia (principal); E11.65 Type 2 diabetes mellitus with hyperglycemia; Z79.4 Long term (current) use of insulin; M47.812 Spondylosis without myelopathy or radiculopathy, cervical region; I10 Essential (primary) hypertension; I49.3 Ventricular premature depolarization; M25.511 Pain in right shoulder | CPT/HCPCS: 81000 ==

== ENCOUNTER 2021-11-03 11:32 | Outpatient (CLI) | payer MEDICARE, BC, SELFPAY ==
--- NOTE | 2021-11-03 11:50 | CT_ITS ---
WS: [id number] CT CHEST, ABDOMEN, AND PELVIS TECHNIQUE: Contrast-enhanced CT of the chest, abdomen, and pelvis with coronal and sagittal reformatt ed images. CLINICAL INFORMATION: PROSTATE CANCER COMPARISON: None. DLP: 1945.[address] scans at [facility] use at least one of these dose optimization techniques: automated e xposure control; mA and/or kV adjustment per patient size (includes targeted exams where dose is matc hed to clinical indication); or iterative reconstruction. CT CHEST: Normal caliber thoracic aorta. Aortic calcification. Normal caliber proximal main pulmonary arteries. No mediastinal or hilar lymphadenopathy. Calcified RIGHT hilar nodes. Coronary calcification. Small esophageal hiatal hernia. Enlarged LEFT axillary lymph node measuring 1.6 cm unchanged. Normal thorac ic spine. Noncalcified pulmonary nodules LEFT lower lobe subpleural in location the largest measuring 5 mm is s lightly more prominent today. Additional tiny progressed subpleural nodule LEFT lower lobe posteriorl y measuring 4 mm with a small amount of surrounding hazy infiltrate or fibrosis. Recommend 6 month fo llow-up. CT ABDOMEN AND PELVIS: Mild hepatomegaly. Normal noncontrast liver. Splenic granulomas. Small esophageal hiatal hernia. Mild circumferential thickening of the distal horizontal portion the duodenum and duodenal jejunal juncti on with luminal narrowing. This appears new compared to the prior examination. This is nonspecific an d recommend further evaluation with upper endoscopy. Adrenal glands are normal. Bilateral renal cysts. No hydronephrosis in either kidney. Diffuse bladder wall thickening likely due to bladder outlet obstruction. Markedly enlarged heterogeneous prostate a ppears improved compared to 2019 today measuring 5.8 x 5.0 CM. Associated normal caliber abdominal ao rta. Mild aortic calcification. Normal sigmoid colon. No evidence of high-grade small or large bowel obstruction. Normal appendix in the RIGHT lower quadrant. No abdominal or pelvic lymphadenopathy. No inguinal lymphadenopathy. Normal lumbar spine. CT/CT chest abd pel w con* IMPRESSION: 1. No definite evidence of metastatic disease in the chest abdomen or pelvis. 2. Tiny subcentimeter LEFT lower lobe pulmonary nodules slightly more prominen t compared to previous. Recommend 6-12 month follow-up chest CT. 3. Mild diffuse circumferential thickening of the horizontal portion the duode num with luminal narrowing extending to the jejunal junction is nonspecific but neoplasm not excluded. Recommend further evaluation with endoscopy. 4. Small esophageal hiatal hernia. 5. No abdominal or pelvic lymphadenopathy. No inguinal lymphadenopathy. 6. Enlarged LEFT axillary lymph node measuring 1.6 cm unchanged. 7. Diffuse bladder outlet obstruction with heterogeneous enlarged prostate.Pro state appears slightly smaller compared to 2019. 8. No visualized osteoblastic metastasis.
[2021-11-03] MEDS: iohexol 300 mg/mL 50 mL Btl PO (12:10)
[2021-11-03] MEDS: iohexol 300 mg/mL 100 mL Btl IV (14:05)
== END 2021-11-03 11:33 | disposition home or self-care (01) ==
LOC: RAD 11:38
PROVIDERS: PCP Nurse Practitioner; Visit Provider Nurse Practitioner Family
DX: C61 Malignant neoplasm of prostate (principal)
CPT/HCPCS: 71260; 74177

== ENCOUNTER → 2021-11-06 09:20 | Outpatient (BNVA) | payer MEDICARE, BC, SELFPAY | PROVIDERS: PCP Nurse Practitioner; Visit Provider Nurse Practitioner | DX: E11.65 Type 2 diabetes mellitus with hyperglycemia (principal); Z79.4 Long term (current) use of insulin | CPT/HCPCS: 80053; 80061; 83036 ==

== ENCOUNTER → 2021-11-10 09:30 | Outpatient (BNVA) | payer MEDICARE, BC, SELFPAY | PROVIDERS: PCP Nurse Practitioner; Visit Provider Nurse Practitioner | DX: E11.65 Type 2 diabetes mellitus with hyperglycemia (principal); Z79.4 Long term (current) use of insulin | CPT/HCPCS: 81000 ==

== ENCOUNTER → 2021-12-04 08:54 | Outpatient (BNVA) | payer MEDICARE, BC, SELFPAY | PROVIDERS: PCP Nurse Practitioner; Visit Provider Internal Medicine Hematology & Oncology | DX: C61 Malignant neoplasm of prostate (principal) | CPT/HCPCS: 84153 ==

== ENCOUNTER 2021-12-09 13:12 | Oncology outpatient (recurring) (ONCR) | payer MEDICARE, BC, SELFPAY | END 2022-01-07 23:59 | disposition home or self-care (01) | PROVIDERS: PCP Nurse Practitioner; Referring Provider Urology; Visit Provider Internal Medicine Hematology & Oncology | DX: Z08 Encounter for follow-up examination after completed treatment for malignant neoplasm (principal); Z85.46 Personal history of malignant neoplasm of prostate; E11.65 Type 2 diabetes mellitus with hyperglycemia; Z79.4 Long term (current) use of insulin; R91.1 Solitary pulmonary nodule; Z92.21 Personal history of antineoplastic chemotherapy; Z92.3 Personal history of irradiation; Z77.22 Contact with and (suspected) exposure to environmental tobacco smoke (acute) (chronic) | CPT/HCPCS: 99214 ==

== ENCOUNTER → 2022-01-28 14:13 | Outpatient (BNVA) | payer MEDICARE, BC, SELFPAY | PROVIDERS: PCP Nurse Practitioner; Visit Provider Surgery | DX: K63.9 Disease of intestine, unspecified (principal) | CPT/HCPCS: 99203 ==

== ENCOUNTER → 2022-02-05 08:23 | Outpatient (BNVA) | payer MEDICARE, BC, SELFPAY | PROVIDERS: PCP Nurse Practitioner; Visit Provider Nurse Practitioner | DX: E11.65 Type 2 diabetes mellitus with hyperglycemia (principal); Z79.4 Long term (current) use of insulin | CPT/HCPCS: 80053; 80061; 83036 ==

== ENCOUNTER → 2022-02-11 08:57 | Outpatient (BNVA) | payer MEDICARE, BC, SELFPAY | PROVIDERS: PCP Nurse Practitioner; Visit Provider Nurse Practitioner | DX: E78.2 Mixed hyperlipidemia (principal); M25.511 Pain in right shoulder; I49.3 Ventricular premature depolarization; I10 Essential (primary) hypertension; E11.65 Type 2 diabetes mellitus with hyperglycemia; Z79.4 Long term (current) use of insulin; M47.812 Spondylosis without myelopathy or radiculopathy, cervical region; R39.11 Hesitancy of micturition | CPT/HCPCS: 81000 ==

== ENCOUNTER 2022-03-17 07:02 | Day surgery (SDC) | payer MEDICARE, BC, SELFPAY ==
[2022-03-12 09:11] VITALS: BMI 25.9
[2022-03-17 07:25] VITALS: BP 140/75; PULSE 62; RESP 18; TEMP 36.1; O2SAT 98
[2022-03-17] MEDS: sodium chloride 0.9% 1,000 ML 30 ML IV (07:28)
--- NOTE | 2022-03-17 07:46 | P.ANESASSM_ITS ---
Pre-Anesthetic Assessment Height/Weight: Height 1.85 m Weight 89.358 kg Temp Pulse Resp BP Pulse Ox O2 Del Method 97.0 F L 62 18 140/75 98 03/17/22 07:25 03/17/22 07:25 03/17/22 07:25 03/17/22 07:25 03/17/22 07:25 03/17/22 07:25 Operation Date: 03/17/22 09:00 Proposed Procedures p EGD 32340,K63.9(Not Applicable) - Adrian Damon DO Familial anesthetic complications: none Was Beta Windy taken within 24 hours: N/A Was Clonidine taken within 24 hours: N/A Last intake: Intake Last Liquid Date 03/16/22 Last Liquid Time 20:00 Last Solid Date 03/16/22 Last Solid Time 20:00 Social Alcohol (2-3 beers a night) and No tobacco Exam alert, oriented x 3, clear to auscultation bilaterally and regular rate & rhythm Airway Mallampati: Class I Dentition: chipped and loose CV/HEM Arrythmia (PVCs) and Hypertension Metabolic Diabetes Mellitus and Hyperlipidemia [facility] [place] Osteoarthritis/DJD Anesthetic Plan ASA status: 3 Anesthesia: MAC Risk of > 500 ml blood loss (7ml/kg in children): No Medications/Allergies Home Medications Medication Instructions Recorded Confirmed Last Taken Type calcium carbonate 500 mg calcium 500 mg PO DAILY 07/23/19 03/12/22 03/16/22 History (1,250 mg) tablet (Calcium 500) magnesium 200 mg tablet 200 mg PO DAILY 07/23/19 03/12/22 03/16/22 History cholecalciferol (vitamin D3) 25 1,000 unit PO DAILY 07/24/19 03/12/22 03/16/22 History mcg (1,000 unit) capsule blood sugar diagnostic (True #100 ea 08/18/21 02/11/22 03/16/22 Rx Metrix Glucose Test Strip) fenofibrate micronized 134 mg 134 mg PO DAILY #90 caps 08/18/21 03/12/22 03/16/22 Rx capsule meclizine 25 mg tablet 25 mg PO BID #60 tabs 09/02/21 03/12/22 03/16/22 Rx naloxone 4 mg/actuation nasal 4 mg intranasal Q3M PRN opioid 11/10/21 03/17/22 Unknown Rx spray (Narcan) overdose #1 ea promethazine-DM 6.25 mg-15 mg/5 mL 5 ml PO Q6H #120 mL 11/10/21 03/12/22 03/16/22 Rx oral syrup atorvastatin 40 mg tablet 40 mg PO DAILY #90 tabs 02/11/22 03/17/22 03/16/22 Rx dapagliflozin 10 mg tablet 10 mg PO QAM #30 tabs 02/11/22 03/12/22 03/16/22 Rx (Farxiga) duloxetine 20 mg capsule,delayed 20 mg PO BID #180 caps 02/11/22 03/12/22 03/16/22 Rx release (Cymbalta) icosapent ethyl 1 gram capsule 2 g PO BID #360 caps 02/11/22 03/12/22 03/16/22 Rx (Vascepa) insulin aspart U-100 100 unit/mL 3 - 24 unit (0.03 - 0.24 mL) 02/11/22 03/12/22 03/16/22 Rx (3 mL) subcutaneous pen (Novolog SUBCUT TID #15 mL Flexpen U-100 Insulin aspart) insulin detemir U-100 100 unit/mL See Rx Instructions SUBCUT DAILY 02/11/22 03/12/22 03/16/22 Rx (3 mL) subcutaneous pen (Levemir #15 mL FlexTouch U-100 Insulin) liraglutide 0.6 mg/0.1 mL (18 mg/3 1.8 mg (0.3 mL) SUBCUT Q24H #9 mL 02/11/22 03/12/22 03/16/22 Rx mL) subcutaneous pen injector (Victoza 3-Nadir) lisinopril 5 mg tablet 5 mg PO DAILY #90 tabs 02/11/22 03/12/22 03/16/22 Rx metoprolol succinate 25 mg 25 mg PO DAILY #90 tabs 02/11/22 03/17/22 03/17/22 Rx tablet,extended release 24 hr (Toprol XL) tamsulosin 0.4 mg capsule (Flomax) 0.4 mg PO .at bedtime #90 caps 02/11/22 03/12/22 03/16/22 Rx tramadol 50 mg tablet See Rx Instructions PO Q6H PRN 02/11/22 03/12/22 03/16/22 Rx pain 30 days #150 tabs Allergies Allergy/AdvReac Type Severity Reaction Status Date / Time No Known Allergies Allergy Verified 03/17/22 07:22 Current Medications Generic Name Dose Route Start Last Admin Trade Name Joseline PRN Reason Stop Dose Admin Sodium Chloride 1,000 mls @ 30 mls/hr 03/17/22 07:15 03/17/22 07:28 Sodium Chloride 0.9% IV 03/18/22 07:14 30 mls/hr .Q24H DEEDEE Administration PFSH Anesthesia Medical History (Updated 02/11/22 @ 08:53 by MICHELLE Katz-C) Acute knee pain Chronic knee pain Chronic neck and back pain Chronic right shoulder pain Diabetes mellitus with hyperglycemia, with long-term current use of insulin Encounter for long-term opiate analgesic use History of nonmelanoma skin cancer Hyperlipidemia Hypertension Left lower lobe pulmonary nodule Long-term use of high-risk medication Prostate cancer Spondylosis of cervical region without myelopathy or radiculopathy Urinary hesitancy Surgical History History of colonoscopy May, @ [facility] [place] Hx of basal cell carcinoma excision 2013- DR BARNES S/P hernia repair INGUINAL HERNIA REPAIR - RIGHT Status post transurethral resection of prostate September 2018 Family History Mother CAD (coronary artery disease) Other Diabetes Spondylosis of cervical region without myelopathy or radiculopathy Denies family history of Anesthesia complication Bleeding disorder Social History Smoking and tobacco status: current every day smoker Second hand smoke exposure: Yes Smoking risk assessment/counseling performed?: No Alcohol intake: current Alcohol intake frequency: 0-2 Drinks per Day Alcohol type: beer Desire information about alcohol rehabilitation?: No Counseling given: No Desire information about substance/drug rehabilitation?: No Counseling given: No Adopted: No Caregiver/support person: No Lives independently: Yes Household members: spouse Housing: House Marital status: Current occupational status: employed Current occupational exposures/hazards: No History of recent travel: No Current gender identity: Male Data Anesthesia Cardiac Studies: No Data to Display
--- NOTE | 2022-03-17 08:40 | PM.HP ---
Providers/Chief Complaint Primary Care Provider: KWAME Katz Chief Complaint: disease of intestine, unspecified History of Present Illness Braden Sommer is a 71 year old male who presents for EGD Medications/Allergies Home Medications Medication Instructions Recorded Confirmed Last Taken Type calcium carbonate 500 mg calcium 500 mg PO DAILY 07/23/19 03/12/22 03/16/22 History (1,250 mg) tablet (Calcium 500) magnesium 200 mg tablet 200 mg PO DAILY 07/23/19 03/12/22 03/16/22 History cholecalciferol (vitamin D3) 25 1,000 unit PO DAILY 07/24/19 03/12/22 03/16/22 History mcg (1,000 unit) capsule blood sugar diagnostic (True #100 ea 08/18/21 02/11/22 03/16/22 Rx Metrix Glucose Test Strip) fenofibrate micronized 134 mg 134 mg PO DAILY #90 caps 08/18/21 03/12/22 03/16/22 Rx capsule meclizine 25 mg tablet 25 mg PO BID #60 tabs 09/02/21 03/12/22 03/16/22 Rx naloxone 4 mg/actuation nasal 4 mg intranasal Q3M PRN opioid 11/10/21 03/17/22 Unknown Rx spray (Narcan) overdose #1 ea promethazine-DM 6.25 mg-15 mg/5 mL 5 ml PO Q6H #120 mL 11/10/21 03/12/22 03/16/22 Rx oral syrup atorvastatin 40 mg tablet 40 mg PO DAILY #90 tabs 02/11/22 03/17/22 03/16/22 Rx dapagliflozin 10 mg tablet 10 mg PO QAM #30 tabs 02/11/22 03/12/22 03/16/22 Rx (Farxiga) duloxetine 20 mg capsule,delayed 20 mg PO BID #180 caps 02/11/22 03/12/22 03/16/22 Rx release (Cymbalta) icosapent ethyl 1 gram capsule 2 g PO BID #360 caps 02/11/22 03/12/22 03/16/22 Rx (Vascepa) insulin aspart U-100 100 unit/mL 3 - 24 unit (0.03 - 0.24 mL) 02/11/22 03/12/22 03/16/22 Rx (3 mL) subcutaneous pen (Novolog SUBCUT TID #15 mL Flexpen U-100 Insulin aspart) insulin detemir U-100 100 unit/mL See Rx Instructions SUBCUT DAILY 02/11/22 03/12/22 03/16/22 Rx (3 mL) subcutaneous pen (Levemir #15 mL FlexTouch U-100 Insulin) liraglutide 0.6 mg/0.1 mL (18 mg/3 1.8 mg (0.3 mL) SUBCUT Q24H #9 mL 02/11/22 03/12/22 03/16/22 Rx mL) subcutaneous pen injector (Victoza 3-Nadir) lisinopril 5 mg tablet 5 mg PO DAILY #90 tabs 02/11/22 03/12/22 03/16/22 Rx metoprolol succinate 25 mg 25 mg PO DAILY #90 tabs 02/11/22 03/17/22 03/17/22 Rx tablet,extended release 24 hr (Toprol XL) tamsulosin 0.4 mg capsule (Flomax) 0.4 mg PO .at bedtime #90 caps 02/11/22 03/12/22 03/16/22 Rx tramadol 50 mg tablet See Rx Instructions PO Q6H PRN 02/11/22 03/12/22 03/16/22 Rx pain 30 days #150 tabs Allergies Allergy/AdvReac Type Severity Reaction Status Date / Time No Known Allergies Allergy Verified 03/17/22 07:22 PFSH Acute PFSH: Medical History (Updated 02/11/22 @ 08:53 by KWAME Katz) Acute knee pain Chronic knee pain Chronic neck and back pain Chronic right shoulder pain Diabetes mellitus with hyperglycemia, with long-term current use of insulin Encounter for long-term opiate analgesic use History of nonmelanoma skin cancer Hyperlipidemia Hypertension Left lower lobe pulmonary nodule Long-term use of high-risk medication Prostate cancer Spondylosis of cervical region without myelopathy or radiculopathy Urinary hesitancy Surgical History [place] [facility] [place] of basal cell carcinoma excision 2013- DR BARNES S/P hernia repair INGUINAL HERNIA REPAIR - RIGHT Status post transurethral resection of prostate September 2018 Family History Mother CAD (coronary artery disease) Other Diabetes Spondylosis of cervical region without myelopathy or radiculopathy Denies family history of Anesthesia complication Bleeding disorder Social History Smoking and tobacco status: current every day smoker Second hand smoke exposure: Yes Smoking risk assessment/counseling performed?: No Alcohol intake: current Alcohol intake frequency: 0-2 Drinks per Day Alcohol type: beer Desire information about alcohol rehabilitation?: No Counseling given: No Desire information about substance/drug rehabilitation?: No Counseling given: No Adopted: No Caregiver/support person: No Lives independently: Yes Household members: spouse Housing: House Marital status: Current occupational status: employed Current occupational exposures/hazards: No History of recent travel: No Current gender identity: Male Vitals/I&O/Wt Last Vital Signs Temp 97.0 F L 03/17/22 07:25 Pulse 62 03/17/22 07:25 Resp 18 03/17/22 07:25 BP 140/75 03/17/22 07:25 Pulse Ox 98 03/17/22 07:25 O2 Del Method 03/17/22 07:25 A&P Assessment and plan (1) Mural thickening of small intestine: Status: Acute Plan EGD Attestations Medical Necessity Statement*: Will be discharged home Coding Level of Care Code Acute Die Try Out Worker Stamping for Charly Mac Diagnoses Mural thickening of small intestine K63.9
[2022-03-17 09:57] VITALS: BP 107/59; PULSE 72; RESP 16; TEMP 36.6; O2SAT 91
[2022-03-17 10:07] VITALS: BP 97/60; PULSE 76; RESP 16; O2SAT 97
[2022-03-17 10:17] VITALS: BP 118/68; PULSE 70; RESP 16; O2SAT 96
--- NOTE | 2022-03-18 09:03 | ANE.PACU2 ---
Inpatient post-anesthesia follow up: Airway intact: Yes Vital signs: Temperature 98 F Pulse Rate 70 Respiratory Rate 16 Blood Pressure 118/68 Pulse Oximetry 96 Oxygen Delivery Me thod Room Air Oxygen Flow Rate Fraction of Inspir ed Oxygen Hydration adequate: Yes Nausea and vomiting: No Pain level: 1 Mental status: Baseline
== END 2022-03-17 10:20 | disposition home or self-care (01) ==
PROVIDERS: PCP Nurse Practitioner; Visit Provider Surgery
PROC: 0DJ08ZZ Inspection of Upper Intestinal Tract, Via Natural or Artificial Opening Endoscopic (ICD-10-PCS; CPT 43235; principal; 2022-03-17 09:00)
DX: K63.9 Disease of intestine, unspecified (principal); E11.65 Type 2 diabetes mellitus with hyperglycemia; I10 Essential (primary) hypertension; E78.5 Hyperlipidemia, unspecified; I49.3 Ventricular premature depolarization; Z79.4 Long term (current) use of insulin; F17.200 Nicotine dependence, unspecified, uncomplicated
CPT/HCPCS: 43239; 88305; J2704; J3490; J7030

== ENCOUNTER → 2022-03-30 13:37 | Outpatient (BNVA) | payer MEDICARE, BC, SELFPAY | PROVIDERS: PCP Nurse Practitioner; Visit Provider Surgery | DX: K63.9 Disease of intestine, unspecified (principal) | CPT/HCPCS: 99212 ==

== ENCOUNTER 2022-05-12 08:21 | Oncology outpatient (recurring) (ONCR) | payer MEDICARE, BC, SELFPAY ==
--- NOTE | 2022-05-12 09:30 | CT_ITS ---
WS: [id number] CT CHEST AND ABDOMEN WITHOUT CONTRAST HISTORY: LEFT lower lobe nodule. TECHNIQUE: Axial imaging is performed through the chest and abdomen without IV contrast.. Sagittal an d coronal reformats. All CT scans at [facility] use at least one of these dose optimization t echniques: automated exposure control; mA and/or kV adjustment per patient size (includes targeted ex ams where dose is matched to clinical indication); or iterative reconstruction. CONTRAST: None DLP: 1094.77 mGy.cm COMPARISON: 11/03/2021 and 11/18/2020 and 11/22/[address]: Lungs are mildly hyperexpanded. No change in the noncalcified 5 mm nodule in the LEFT lower lobe sinc e 11/18/2020. Additional 5 mm nodule at the LEFT lung base is also unchanged. No new nodules. Benign c alcification with adjacent scarring RIGHT lower lobe. No new mass or nodules. No pericardial or pleural effusions. No mediastinal or hilar lymph nodes. Mild atherosclerosis aorta. Normal size pulmonary artery. Small hiatal hernia. Heart is normal size. Abdomen CT: Liver: Hepatomegaly. Hepatic steatosis. No bile duct dilatation. Gallbladder: Normal. Pancreas: Normal. Spleen: Normal size with granulomata. Right kidney: Left kidney: There are a few scattered hypodensities which cannot be further characterized on this un enhanced study. No increase in size since the prior study. No adrenal mass. Abdominal aorta: Atherosclerosis aorta. No aneurysm. No ascites or adenopathy. Gastrointestinal tract: Unremarkable the stomach. No os small bowel abnormality. Partially visualized appendix is normal. Osseous structures: CT/CT chest abdomen wo con IMPRESSION: 1. 5 mm noncalcified LEFT lower lobe pulmonary nodules are stable since 021. 11/22/2018. No additional follow-up necessary. 2. Post treatment changes RIGHT lower lobe with no recurrent mass. 3. No adenopathy. 4. No abnormality noted in the upper abdomen on this unenhanced study.
[2022-05-12] MEDS: iohexol 350 mg/mL 100 mL Btl PO (09:45)
== END 2022-06-09 23:59 | disposition home or self-care (01) ==
LOC: RAD 08:21 → ONCMED 06-09 07:11
PROVIDERS: PCP Nurse Practitioner; Referring Provider Urology; Visit Provider Internal Medicine Hematology & Oncology
DX: R91.1 Solitary pulmonary nodule (principal)
CPT/HCPCS: 71250; 74150

== ENCOUNTER → 2022-05-17 08:52 | Outpatient (BNVA) | payer MEDICARE, BC, SELFPAY | PROVIDERS: PCP Nurse Practitioner; Visit Provider Nurse Practitioner | DX: E11.65 Type 2 diabetes mellitus with hyperglycemia (principal); E78.2 Mixed hyperlipidemia; Z79.4 Long term (current) use of insulin; E78.5 Hyperlipidemia, unspecified; Z79.891 Long term (current) use of opiate analgesic | CPT/HCPCS: 80053; 80061; 83036 ==

== ENCOUNTER 2022-06-16 10:02 | Outpatient (CLI) | payer MEDICARE, BC, SELFPAY ==
[2022-06-16 11:04] LABS: Prostate Specific Antigen < 0.014 ng/mL (0-4)
== END 2022-06-16 10:03 | disposition home or self-care (01) ==
LOC: LAB 10:04
PROVIDERS: PCP Nurse Practitioner; Visit Provider Internal Medicine Hematology & Oncology
DX: C61 Malignant neoplasm of prostate (principal)
CPT/HCPCS: 36415; 84153

== ENCOUNTER 2022-06-17 13:44 | Oncology outpatient (recurring) (ONCR) | payer MEDICARE, BC, SELFPAY | END 2022-07-10 23:59 | disposition home or self-care (01) | PROVIDERS: PCP Nurse Practitioner; Referring Provider Urology; Visit Provider Internal Medicine Hematology & Oncology | DX: Z08 Encounter for follow-up examination after completed treatment for malignant neoplasm (principal); R91.1 Solitary pulmonary nodule; Z85.46 Personal history of malignant neoplasm of prostate; E11.65 Type 2 diabetes mellitus with hyperglycemia; Z79.4 Long term (current) use of insulin | CPT/HCPCS: 99214 ==

== ENCOUNTER → 2022-08-13 08:33 | Outpatient (BNVA) | payer MEDICARE, BC, SELFPAY | PROVIDERS: PCP Nurse Practitioner; Visit Provider Nurse Practitioner | DX: E78.2 Mixed hyperlipidemia (principal); E11.65 Type 2 diabetes mellitus with hyperglycemia; Z79.4 Long term (current) use of insulin; Z79.891 Long term (current) use of opiate analgesic | CPT/HCPCS: 80053; 80061; 83036 ==

== ENCOUNTER → 2022-08-19 11:08 | Outpatient (BNVA) | payer MEDICARE, BC, SELFPAY | PROVIDERS: PCP Nurse Practitioner; Visit Provider Nurse Practitioner | DX: I70.90 Unspecified atherosclerosis (principal); E78.2 Mixed hyperlipidemia; E11.65 Type 2 diabetes mellitus with hyperglycemia; Z79.4 Long term (current) use of insulin; M47.812 Spondylosis without myelopathy or radiculopathy, cervical region; I10 Essential (primary) hypertension; R39.11 Hesitancy of micturition; M25.511 Pain in right shoulder | CPT/HCPCS: 81000; 82043 ==

== ENCOUNTER → 2022-10-06 10:54 | Outpatient (BNVA) | payer MEDICARE, BC, SELFPAY | PROVIDERS: PCP Nurse Practitioner; Visit Provider Nurse Practitioner | DX: R05.9 Cough, unspecified (principal) | CPT/HCPCS: 71046; 85025 ==

== ENCOUNTER → 2022-10-28 12:04 | Outpatient (BNVA) | payer MEDICARE, BC, SELFPAY | PROVIDERS: PCP Nurse Practitioner; Visit Provider Nurse Practitioner | DX: E11.65 Type 2 diabetes mellitus with hyperglycemia (principal); Z79.4 Long term (current) use of insulin; Z79.891 Long term (current) use of opiate analgesic; E78.2 Mixed hyperlipidemia | CPT/HCPCS: 80053; 80061; 83036 ==

== ENCOUNTER → 2022-11-02 08:27 | Outpatient (BNVA) | payer MEDICARE, BC, SELFPAY | PROVIDERS: PCP Nurse Practitioner; Visit Provider Nurse Practitioner | DX: I70.90 Unspecified atherosclerosis (principal); E78.2 Mixed hyperlipidemia; E11.65 Type 2 diabetes mellitus with hyperglycemia; Z79.4 Long term (current) use of insulin; M47.812 Spondylosis without myelopathy or radiculopathy, cervical region; I10 Essential (primary) hypertension; I49.3 Ventricular premature depolarization | CPT/HCPCS: 81000 ==

== ENCOUNTER 2022-11-15 07:53 | Outpatient (CLI) | payer MEDICARE, BC, SELFPAY ==
--- NOTE | 2022-11-15 08:30 | CT_ITS ---
WS: [id number] CT HEAD TECHNIQUE: Noncontrast CT of the head obtained from the skullbase to the vertex. CLINICAL INFORMATION: R51.9 - Headache, unspecified COMPARISON: None. DLP: 975.[address] scans at [facility] use at least one of these dose optimization techniques: automated e xposure control; mA and/or kV adjustment per patient size (includes targeted exams where dose is matc hed to clinical indication); or iterative reconstruction. FINDINGS: No evidence of intracranial hemorrhage or mass effect. Ventricular system and basal cisterns are stewart nt. Mild small vessel changes with moderate parenchymal volume loss worse in the frontal lobes. No ex tra-axial fluid collections. Vascular calcification. Mild mucosal thickening paranasal sinuses. Mastoid air cells well aerated. CT/CT head wo con* 20240 IMPRESSION: 1. No evidence of intracranial hemorrhage or mass effect. 2. Mild small vessel changes. Moderate parenchymal volume loss worse in the fr ontal lobes. 3. Vascular calcification. 4. No acute intracranial findings.
[2022-11-15] MEDS: iohexol 350 mg/mL 500 mL Btl (per mL) IV (08:36)
--- NOTE | 2022-11-15 15:30 | CT_ITS ---
WS: [id number] CT chest w con* [id number] HISTORY: R91.1 - Solitary pulmonary nodule TECHNIQUE: Axial imaging performed through the thorax. Coronal and sagittal reformats are submitted. All CT scans at [facility] use at least one of these dose optimization techniques: automated exposure control; mA and/or kV adjustment per patient size (includes targeted exams where dose is mat ched to clinical indication); or iterative reconstruction. CONTRAST: Omnipaque 350; 100 mL IV. DLP: 323.54 mGy.cm COMPARISON: 11/03/2021, 11/18/2020, 02/20/2020, 11/22/2018 Lungs and central airway: Pulmonary hyperexpansion. No mass or pneumonia. Benign calcification LEFT l ower lobe. Previously described subcentimeter nodules in the LEFT lower lobe are reidentified. These nodules measure up to 5 mm. After reviewing multiple prior examinations there has been no significant change since 11/22/2018. Slight variation in measurements due to volume slice averaging. Pleura: Normal. No pleural effusion. Heart and pericardium: Mild cardiomegaly. Mediastinum and iraj: No mediastinum or hilar adenopathy. Vessels: Moderate atherosclerosis aorta with mild ectasia. No aneurysm. Normal size pulmonary artery. Chest wall and lower neck: No soft tissue masses. Upper abdomen: Mild hepatic steatosis. Visualized gallbladder is negative. No adrenal mass. Suprarena l aortic calcifications. Small hiatal hernia. LEFT renal cyst 9.5 mm. Osseous structures: No destructive process. CT/CT chest w con* [id number] IMPRESSION: 1. Long-term stability of subcentimeter LEFT lower lobe pulmonary nodules. Sta ble since 11/22/2018. Nodules vary slightly in size between CT evaluations due t o slice selection and volume averaging. No new mass or nodule. 2. No adenopathy. 3. Mild cardiomegaly.
== END 2022-11-15 07:54 | disposition home or self-care (01) ==
PROVIDERS: PCP Nurse Practitioner; Visit Provider Nurse Practitioner
DX: R51.9 Headache, unspecified (principal); R91.1 Solitary pulmonary nodule; I51.7 Cardiomegaly
CPT/HCPCS: 70450; 71260; Q9967

== ENCOUNTER → 2022-11-23 09:10 | Outpatient (BNVA) | payer MEDICARE, BC, SELFPAY | PROVIDERS: PCP Nurse Practitioner; Visit Provider Orthopaedic Surgery | DX: S83.91XA Sprain of unspecified site of right knee, initial encounter (principal); W19.XXXA Unspecified fall, initial encounter | CPT/HCPCS: 73560; 73565; 99203 ==

== ENCOUNTER → 2022-12-20 09:30 | Outpatient (BNVA) | payer MEDICARE, BC, SELFPAY | PROVIDERS: PCP Nurse Practitioner; Visit Provider Internal Medicine Hematology & Oncology | DX: C61 Malignant neoplasm of prostate (principal); E78.5 Hyperlipidemia, unspecified | CPT/HCPCS: 80053; 84153 ==

== ENCOUNTER 2022-12-22 13:26 | Oncology outpatient (recurring) (ONCR) | payer MEDICARE, BC, SELFPAY | END 2023-01-07 23:59 | disposition home or self-care (01) | PROVIDERS: PCP Nurse Practitioner; Referring Provider Urology; Visit Provider Internal Medicine Hematology & Oncology | DX: E11.65 Type 2 diabetes mellitus with hyperglycemia; Z79.4 Long term (current) use of insulin; Z92.21 Personal history of antineoplastic chemotherapy; Z92.3 Personal history of irradiation; Z77.22 Contact with and (suspected) exposure to environmental tobacco smoke (acute) (chronic); C61 Malignant neoplasm of prostate | CPT/HCPCS: 99214 ==

== ENCOUNTER → 2023-01-19 09:12 | Outpatient (BNVA) | payer MEDICARE, BC, SELFPAY | PROVIDERS: PCP Nurse Practitioner; Visit Provider Nurse Practitioner | DX: E11.65 Type 2 diabetes mellitus with hyperglycemia (principal); Z79.4 Long term (current) use of insulin | CPT/HCPCS: 80061; 83036 ==

== ENCOUNTER → 2023-01-25 08:55 | Outpatient (BNVA) | payer MEDICARE, BC, SELFPAY | PROVIDERS: PCP Nurse Practitioner; Visit Provider Nurse Practitioner | DX: I70.90 Unspecified atherosclerosis (principal); E78.2 Mixed hyperlipidemia; E11.65 Type 2 diabetes mellitus with hyperglycemia; Z79.4 Long term (current) use of insulin; M47.812 Spondylosis without myelopathy or radiculopathy, cervical region; I10 Essential (primary) hypertension; I49.3 Ventricular premature depolarization; R39.11 Hesitancy of micturition; Z79.899 Other long term (current) drug therapy | CPT/HCPCS: 81000 ==

== ENCOUNTER → 2023-04-14 08:18 | Outpatient (BNVA) | payer MEDICARE, BC, SELFPAY | PROVIDERS: PCP Nurse Practitioner; Visit Provider Nurse Practitioner | DX: C61 Malignant neoplasm of prostate (principal); E78.5 Hyperlipidemia, unspecified; E78.2 Mixed hyperlipidemia | CPT/HCPCS: 80053; 80061; 84153 ==

== ENCOUNTER → 2023-04-19 08:33 | Outpatient (BNVA) | payer MEDICARE, BC, SELFPAY | PROVIDERS: PCP Nurse Practitioner; Visit Provider Nurse Practitioner | DX: I70.90 Unspecified atherosclerosis (principal); E78.2 Mixed hyperlipidemia; E11.65 Type 2 diabetes mellitus with hyperglycemia; Z79.4 Long term (current) use of insulin; M47.812 Spondylosis without myelopathy or radiculopathy, cervical region; I10 Essential (primary) hypertension; I49.3 Ventricular premature depolarization; R39.11 Hesitancy of micturition; Z23 Encounter for immunization; Z79.899 Other long term (current) drug therapy | CPT/HCPCS: 81000 ==

== ENCOUNTER → 2023-04-21 10:27 | Outpatient (BNVA) | payer MEDICARE, BC, SELFPAY | PROVIDERS: PCP Nurse Practitioner; Referring Provider Nurse Practitioner; Visit Provider Psychiatry & Neurology Neurology | DX: I67.9 Cerebrovascular disease, unspecified (principal); I67.82 Cerebral ischemia; H93.19 Tinnitus, unspecified ear; I10 Essential (primary) hypertension | CPT/HCPCS: 99203 ==

== ENCOUNTER → 2023-05-04 09:36 | Outpatient (BNVA) | payer MEDICARE, BC, SELFPAY | PROVIDERS: PCP Nurse Practitioner; Visit Provider Otolaryngology | DX: H93.13 Tinnitus, bilateral (principal) | CPT/HCPCS: 99203 ==

== ENCOUNTER → 2023-07-07 08:31 | Outpatient (BNVA) | payer MEDICARE, BC, SELFPAY | PROVIDERS: PCP Nurse Practitioner; Visit Provider Nurse Practitioner | DX: Z79.891 Long term (current) use of opiate analgesic (principal); E11.65 Type 2 diabetes mellitus with hyperglycemia; Z79.4 Long term (current) use of insulin; E78.2 Mixed hyperlipidemia; Z85.46 Personal history of malignant neoplasm of prostate; C61 Malignant neoplasm of prostate | CPT/HCPCS: 80053; 80061; 83036; 83721; 84153; 85025 ==

== ENCOUNTER → 2023-07-13 08:31 | Outpatient (BNVA) | payer MEDICARE, BC, SELFPAY | PROVIDERS: PCP Nurse Practitioner; Visit Provider Nurse Practitioner | DX: I67.9 Cerebrovascular disease, unspecified (principal); E78.2 Mixed hyperlipidemia; E11.65 Type 2 diabetes mellitus with hyperglycemia; Z79.4 Long term (current) use of insulin; M47.812 Spondylosis without myelopathy or radiculopathy, cervical region; I10 Essential (primary) hypertension; I49.3 Ventricular premature depolarization; R39.11 Hesitancy of micturition; E78.5 Hyperlipidemia, unspecified; E11.9 Type 2 diabetes mellitus without complications | CPT/HCPCS: 81000 ==

== ENCOUNTER 2023-07-20 14:49 | Oncology outpatient (recurring) (ONCR) | payer MEDICARE, BC, SELFPAY | END 2023-08-10 23:59 | disposition home or self-care (01) | PROVIDERS: PCP Nurse Practitioner; Referring Provider Urology; Visit Provider Internal Medicine Hematology & Oncology | DX: Z08 Encounter for follow-up examination after completed treatment for malignant neoplasm (principal); R91.1 Solitary pulmonary nodule; Z85.46 Personal history of malignant neoplasm of prostate; E11.65 Type 2 diabetes mellitus with hyperglycemia; Z79.4 Long term (current) use of insulin; Z92.21 Personal history of antineoplastic chemotherapy; Z92.3 Personal history of irradiation; Z77.22 Contact with and (suspected) exposure to environmental tobacco smoke (acute) (chronic) | CPT/HCPCS: 99214 ==

== ENCOUNTER → 2023-08-10 15:09 | Outpatient (BNVA) | payer MEDICARE, BC, SELFPAY | PROVIDERS: PCP Nurse Practitioner; Visit Provider Psychiatry & Neurology Neurology | DX: G31.9 Degenerative disease of nervous system, unspecified (principal); R41.3 Other amnesia; I67.9 Cerebrovascular disease, unspecified; E78.2 Mixed hyperlipidemia; H93.13 Tinnitus, bilateral; E55.9 Vitamin D deficiency, unspecified; E07.9 Disorder of thyroid, unspecified; R42 Dizziness and giddiness; I10 Essential (primary) hypertension | CPT/HCPCS: 36415; 82306; 82565; 82607; 83735; 83921; 84425; 84443; 84481; 84520; 86592; 99212 ==

== ENCOUNTER 2023-08-24 14:55 | Outpatient (CLI) | payer MEDICARE, BC, SELFPAY ==
--- NOTE | 2023-08-24 15:15 | USCV_ITS ---
Braden Sommer Age: 73 Gender: M : 1950 Exam Date: 08/24/2023 15:16 Ordering Phys: Andrey Abdalla MD Technologist: Claudette Inman [place] [facility] [place]: dizziness and giddiness Risk Factors: unknown Previous Vascular Surgery: PT STATES NOTHING Right Brachial BP: / Left Brachial BP: / Right Left Velocity (cm/s) Spectral Plaque Velocity (cm/s) Spectral Plaque Syst/Diast Broadening Syst/Diast Broadening 189.70/28.70 Prox CCA 192.70/ 31.70 153.60/9.10 Mid CCA 155.10/ 31.70 157.10/22.70 Distal CCA 106.00/ 9.30 123.60/22.20 Prox ICA 163.60/ 21.80 108.60/18.40 Mid ICA 163.60/ 21.80 104.80/18.40 Distal ICA 147.90/ 15.40 157.40 ECA 157.30 0.70 ICA/CCA 1.50 Antegrade Vertebral Antegrade 78.90/ 8.40 cm/s 97.40/ 15.40 cm/s Tri Subclavian Tri 219.5 173.0 0 0 FINDINGS Comparison: none available. Moderate diffuse elevation of systolic velocity in the carotid systems. No significant plaque. Antegrade vertebral arteries. CONCLUSIONS Abnormal elevated systolic velocites, bilateral and diffuse in carotid arteries. Consider cardiac output as a source. Recommend cardiology evaluation. Dr. Niesha Amato DO (Electronically Signed) Final Date: 25 August 2023 07:57 S
== END 2023-08-24 14:56 | disposition home or self-care (01) ==
LOC: RAD 14:56
PROVIDERS: PCP Nurse Practitioner; Visit Provider Psychiatry & Neurology Neurology
DX: R42 Dizziness and giddiness (principal); R93.89 Abnormal findings on diagnostic imaging of other specified body structures; E78.2 Mixed hyperlipidemia; I67.9 Cerebrovascular disease, unspecified; H93.13 Tinnitus, bilateral
CPT/HCPCS: 93880

== ENCOUNTER 2023-09-13 12:31 | Outpatient (CLI) | payer MEDICARE, BC, SELFPAY ==
--- NOTE | 2023-09-13 13:00 | MR_ITS ---
WS: [id number] MRI BRAIN WITH AND WITHOUT CONTRAST HISTORY: E78.2 - Mixed hyperlipidemia COMPARISON: CT head 11/15/2022 TECHNIQUE: Multiplanar imaging performed through the brain with MultiHance 20 ml's IV. No acute infarcts are seen. Steen-white matter differentiation is well preserved. Mild atrophy is symmetric. No prior infarcts. Very minimal small vessel ischemic disease. Ventricles and extra-axial spaces are normal. Clivus and pituitary gland are normal. Visualized posterior fossa and brainstem are also normal. Postcontrast images are negative for masses or vascular malformations. Absent or very small caliber d istal RIGHT vertebral artery. Dural venous sinuses are normal. Paranasal sinuses: Well aerated with no significant disease. Mastoid air cells: RIGHT mastoid air cell effusion. Calvarium and scalp: Normal. IMPRESSION: 1. No acute infarct or hemorrhage. 2. No mass or vascular malformation. 3. Mild bilateral symmetric atrophy and minimal small vessel ischemic disease.
[2023-09-13] MEDS: gadobenate dimeglumine 20 mL vial IV (13:28)
== END 2023-09-13 12:32 | disposition home or self-care (01) ==
LOC: RAD 12:32
PROVIDERS: PCP Nurse Practitioner; Visit Provider Psychiatry & Neurology Neurology
DX: I67.82 Cerebral ischemia (principal); E78.2 Mixed hyperlipidemia
CPT/HCPCS: 70553; A9577

== ENCOUNTER → 2023-09-23 08:27 | Outpatient (BNVA) | payer MEDICARE, BC, SELFPAY | PROVIDERS: PCP Nurse Practitioner; Visit Provider Nurse Practitioner | DX: E11.65 Type 2 diabetes mellitus with hyperglycemia (principal); Z79.4 Long term (current) use of insulin; E78.2 Mixed hyperlipidemia; Z79.891 Long term (current) use of opiate analgesic | CPT/HCPCS: 80053; 80061; 83036 ==

== ENCOUNTER → 2023-10-04 12:45 | Outpatient (BNVA) | payer MEDICARE, BC, SELFPAY | PROVIDERS: PCP Nurse Practitioner; Visit Provider Psychiatry & Neurology Neurology | DX: G31.9 Degenerative disease of nervous system, unspecified (principal); R41.3 Other amnesia; I67.9 Cerebrovascular disease, unspecified | CPT/HCPCS: 99212 ==

== ENCOUNTER → 2023-12-12 08:38 | Outpatient (BNVA) | payer MEDICARE, BC, SELFPAY | PROVIDERS: PCP Nurse Practitioner; Visit Provider Nurse Practitioner | DX: Z79.891 Long term (current) use of opiate analgesic (principal); E11.65 Type 2 diabetes mellitus with hyperglycemia; Z79.4 Long term (current) use of insulin; E78.2 Mixed hyperlipidemia | CPT/HCPCS: 80053; 80061; 83036; 83721; 85025 ==

== ENCOUNTER → 2024-01-17 08:43 | Outpatient (BNVA) | payer MEDICARE, BC, SELFPAY | PROVIDERS: PCP Nurse Practitioner; Visit Provider Internal Medicine Medical Oncology | DX: Z85.46 Personal history of malignant neoplasm of prostate (principal) | CPT/HCPCS: 80053; 84153; 85025 ==

== ENCOUNTER 2024-01-24 10:27 | Oncology outpatient (recurring) (ONCR) | payer MEDICARE, BC, SELFPAY ==
[2024-01-31] MEDS: iohexol 350 mg/mL 500 mL Btl (per mL) PO (10:36)
--- NOTE | 2024-01-31 11:00 | CT_ITS ---
WS: [id number] CT CHEST, ABDOMEN AND PELVIS WITH CONTRAST HISTORY: Surveillance, history of prostate cancer. TECHNIQUE: Contiguous 5 mm axial imaging performed through the chest, abdomen and pelvis with IV cont rast, oral contrast has been provided. Coronal and sagittal reformats chest. Coronal and sagittal ref ormats through the abdomen and pelvis. All CT scans at [facility] use at least one of these d ose optimization techniques: automated exposure control; mA and/or kV adjustment per patient size (in cludes targeted exams where dose is matched to clinical indication); or iterative reconstruction. CONTRAST: Omnipaque 350; 100 mL IV. DLP: 1143.42 mGy.cm COMPARISON: 11/15/2022, 11/03/[address]: Bilateral lower lobe pulmonary nodules are stable since 2019. Some of these nodules are hyun cified. No new mass or nodule or increasing size of nodule. No pneumonia. Mild volume loss LEFT lower lobe. Mild cardiac enlargement. No pericardial or pleural effusion. No mediastinal or hilar adenopat hy. Mild atherosclerosis aorta. No chest wall mass. Moderate-sized hiatal hernia. Abdomen CT: Normal liver and spleen. Normal portal vein. Normal gallbladder. Normal pancreas. No duct dilatation. No adrenal mass. No solid renal mass or obstruction. There are several small cortical cy sts with LEFT kidney. There are several cortical densities which are too small to characterize. The l argest cyst in the mid kidney is 1.7 x 2.0 cm. Mild atherosclerosis aorta. Nondistended stomach. No small bowel obstruction. Moderate diffuse constipation. Normal appendix. Mil d diverticular disease in the distal colon without acute diverticulitis. Pelvic CT: Prostate gland is enlarged encroaching into the bladder and heterogeneous. Bladder wall is mildly thickened which is probably due to outlet obstruction. No adenopathy. No osteoblastic or osteolytic bone lesions. Very subtle lytic area in the LEFT ilium has been present on prior studies with no progression and is likely benign. CT/CT chest abdpel w/*[id number] IMPRESSION: 1. No sclerotic bone lesions or metastatic prostate disease identified. 2. Long-term stability of LEFT lower lobe pulmonary nodule and RIGHT lower lob e calcified nodule. 3. No mediastinal or hilar lymphadenopathy. No adenopathy in the chest, abdome n or pelvis. 4. Moderate-sized hiatal hernia. 5. Diffuse constipation. 6. Prostate gland enlargement and heterogeneity encroaching into the bladder. 7. Bladder wall thickening is diffuse from outlet obstruction.
[2024-01-31] MEDS: iohexol 350 mg/mL 500 mL Btl (per mL) IV (11:13)
== END 2024-02-08 23:59 | disposition home or self-care (01) ==
LOC: ONCMED 01-31 10:01 → RAD 01-31 10:02 → ONCMED 01-31 10:03
PROVIDERS: PCP Nurse Practitioner; Referring Provider Urology; Visit Provider Nurse Practitioner Family
DX: Z53.9 Procedure and treatment not carried out, unspecified reason (principal); C61 Malignant neoplasm of prostate; R91.1 Solitary pulmonary nodule
CPT/HCPCS: 71260; 74177; 99214; Q9967

== ENCOUNTER → 2024-02-27 08:15 | Outpatient (BNVA) | payer MEDICARE, BC, SELFPAY | PROVIDERS: PCP Nurse Practitioner; Visit Provider Nurse Practitioner | DX: E11.9 Type 2 diabetes mellitus without complications (principal) | CPT/HCPCS: 80053; 80061; 83036 ==

== ENCOUNTER 2024-04-16 08:00 | Outpatient (CLI) | payer MEDICARE, BC, SELFPAY ==
--- NOTE | 2024-04-16 08:00 | CTR_ITS ---
PROCEDURE INFORMATION: Exam: CT Neck With Contrast Exam date and time: 04/16/2024 8:34 AM Age: 73 years old Clinical indication: Enlarged lymph nodes; Generalized; Patient HX: HX of prostate cancer; Additional info: R59.9 - enlarged lymph nodes, unspecified TECHNIQUE: Imaging protocol: Computed tomography of the neck with contrast. Radiation optimization: All CT scans at this facility use at least one of these dose optimization techniques: automated exposure control; mA and/or kV adjustment per patient size (includes targeted exams where dose is matched to clinical indication); or iterative reconstruction. Contrast material: OMNI 350; Contrast volume: 100 ml; Contrast route: INTRAVENOUS (IV); COMPARISON: NM bone scan whole body* [id number] 10/11/2018 7:55 AM RADIATION DOSE METRICS: Total DLP (mGy-cm): 212.43 FINDINGS: Salivary glands: Normal. Glands are normal in size. Pharynx: No definite pharyngeal mucosal lesions seen. Prevertebral and retropharyngeal spaces: Unremarkable. Larynx: Unremarkable. Epiglottis is normal. Thyroid: Normal. No enlarged or calcified nodules. Trachea: Visualized trachea is unremarkable. Lungs: Unremarkable as visualized. Lymph nodes: Left-sided cervical lymphadenopathy involving superior posterior triangle (V-A) largest measuring 2.4 x 1.9 x 1.7 cm, suprahyoid internal jugular chain (II-A), measuring 3.7 x 2.5 x 2.0 cm, and left-sided medial supraclavicular fossa (IV-B), measuring 2.6 x 3.6 x 2.7 cm. The largest abnormal nodes are in the internal jugular chain on the left with heterogeneous low-density components. There is a single left axillary node measuring 2.0 cm. Bones/joints: Unremarkable. No acute fracture. Soft tissues: See Lymph nodes finding. CT/CT neck w con* [id number] IMPRESSION: Multiple areas of abnormally enlarged cervical lymph nodes and left axillary node as described above. There may be components of necrosis in the largest area of involvement. Given patient's history metastatic disease from prostate cancer is an unusual but possible etiology. If so, it is unlikely that these are the only lesions and further evaluation with PET-CT should be considered. Additional diagnostic possibilities include separate systemic process such as lymphoma or disseminated infection.
[2024-04-16 09:15] LABS: Blood Urea Nitrogen 19 mg/dL (8-23)
[2024-04-16] MEDS: iohexol 350 mg/mL 500 mL Btl (per mL) IV (09:15)
== END 2024-04-16 08:05 | disposition home or self-care (01) ==
PROVIDERS: PCP Nurse Practitioner; Visit Provider Nurse Practitioner
DX: R59.9 Enlarged lymph nodes, unspecified (principal)
CPT/HCPCS: 70491; 82565; 84520

== ENCOUNTER → 2024-04-24 12:46 | Outpatient (BNVA) | payer MEDICARE, BC, SELFPAY | PROVIDERS: PCP Nurse Practitioner; Visit Provider Psychiatry & Neurology Neurology | DX: R41.3 Other amnesia (principal); G31.9 Degenerative disease of nervous system, unspecified; I67.9 Cerebrovascular disease, unspecified; M54.16 Radiculopathy, lumbar region | CPT/HCPCS: 99212; 99213 ==

== ENCOUNTER → 2024-05-09 10:01 | Outpatient (BNVA) | payer MEDICARE, BC, SELFPAY | PROVIDERS: PCP Nurse Practitioner; Visit Provider Nurse Practitioner | DX: E11.9 Type 2 diabetes mellitus without complications (principal) | CPT/HCPCS: 80053; 80061; 83036; 85025 ==

== ENCOUNTER → 2024-05-16 09:40 | Outpatient (BNVA) | payer MEDICARE, BC, SELFPAY | PROVIDERS: PCP Nurse Practitioner; Visit Provider Nurse Practitioner | DX: S90.416A Abrasion, unspecified lesser toe(s), initial encounter (principal); M25.872 Other specified joint disorders, left ankle and foot; M25.862 Other specified joint disorders, left knee; M77.32 Calcaneal spur, left foot; X58.XXXA Exposure to other specified factors, initial encounter | CPT/HCPCS: 73630 ==

== ENCOUNTER 2024-05-25 11:01 | Oncology outpatient (recurring) (ONCR) | payer MEDICARE, BC, SELFPAY ==
--- NOTE | 2024-05-25 11:30 | PETR_ITS ---
PROCEDURE INFORMATION: Exam: PET/CT Skull Base to Mid-thigh Exam date and time: 05/25/2024 12:45 PM Age: 74 years old Clinical indication: Partially necrotic lymphadenopathy in the left neck found on CT neck on 04/16/2024. LABS AND CLINICAL REPORTS: Glucose: 126 mg/dl Treatment strategy for malignancy (PET staging): Initial Staging (PI) TECHNIQUE: Imaging protocol: Following at least four-hour fasting and following the injection of radiopharmaceutical, low dose CT images were obtained. Then, PET images were obtained. Attenuation corrected images were constructed using the CT scan. Fused images of PET and CT were reviewed. The standardized uptake values (SUV) reported below are maximum values within a region of interest, expressed in gm/ml. Exam includes orbital meatal line to mid-thigh. Radiopharmaceutical: 10.21 mCi F-18 FDG (Fluorodeoxyglucose), IV. Time of imaging post radiopharmaceutical administration: 1 hour Injection site: right ac COMPARISON: CT neck w con* [id number] 04/16/2024 8:34 AM FINDINGS: Brain: Normal physiologic uptake. Pharynx: No abnormal uptake. Larynx: No abnormal uptake. Lungs, pleura and trachea: No abnormal uptake. No lung nodules or masses. No pleural effusion. Heart: Unremarkable. There is no cardiomegaly. Coronary artery calcification is present. There is no pericardial effusion. Mediastinal space: No abnormal uptake. There is a small hiatal hernia. Liver: No abnormal uptake. Maximum uptake is 3.9 SUV. Gallbladder and biliary ducts: No abnormal uptake. No calcified gallstones. Pancreas: No abnormal uptake. Spleen: No abnormal uptake. No splenomegaly. Small calcified granulomas. Adrenal glands: No abnormal uptake. No nodules. Kidneys and ureters: Normal physiologic uptake. No hydronephrosis. A couple of simple cysts in the left kidney measuring up to 2 cm, and 0.7 cm hemorrhagic cyst medially in the mid/upper pole of the left kidney. Stomach and bowel: About 1.5 cm focus of increased uptake of 7.8 SUV in the transverse colon is indeterminate for correlation with colonoscopy. No abnormal dilatation of the bowel. Intraperitoneal and retroperitoneal spaces: No abnormal uptake. No ascites. Urinary bladder: Normal physiologic uptake. Reproductive: No abnormal uptake. The prostate is mildly enlarged Vasculature: No abnormal uptake. Lymph nodes: FDG avid enlarged lymph nodes in the left upper neck in the level 2 measure up to 15 SUV. The largest inferior most node with a short axis of 2 cm is hypodense corresponding to central necrotic findings documented on prior contrast enhanced CT with a peripheral rim of increased uptake measuring 7.9 SUV. No FDG avid lymphadenopathy in the chest, abdomen, pelvis, and extremities. There is sequela of exposure to granulomatous disease with calcified granulomas in normal size right hilar and right subcarinal lymph nodes. Skeleton: No abnormal uptake in the visualized axial and appendicular skeleton. Soft tissues: No abnormal uptake in the visualized head, neck, chest, abdomen, pelvis, and extremities. PET/PET skull to thigh INIT [id number] IMPRESSION: 1. Intensely FDG avid partially necrotic left upper neck (level 2) lymphadenopathy is statistically likely to originate from the head and neck primary. There is no abnormal uptake in the nasopharynx, tonsils, base of tongue or elsewhere in the neck to suggest obvious primary. 2. Small focus of increased uptake in the transverse colon for correlation with colonoscopy to exclude a small mass.
== END 2024-06-09 23:59 | disposition home or self-care (01) ==
LOC: ONCMED 11:05 → RAD 11:11 → ONCMED 05-28 11:20
PROVIDERS: PCP Nurse Practitioner; Referring Provider Urology; Visit Provider Nurse Practitioner
DX: R93.0 Abnormal findings on diagnostic imaging of skull and head, not elsewhere classified (principal); R93.3 Abnormal findings on diagnostic imaging of other parts of digestive tract; R59.1 Generalized enlarged lymph nodes; Z53.9 Procedure and treatment not carried out, unspecified reason
CPT/HCPCS: 78815; A9552

== ENCOUNTER → 2024-06-15 08:20 | Outpatient (BNVA) | payer MEDICARE, BC, SELFPAY | PROVIDERS: PCP Nurse Practitioner; Visit Provider Surgery | DX: R59.0 Localized enlarged lymph nodes (principal); R94.8 Abnormal results of function studies of other organs and systems; Z85.46 Personal history of malignant neoplasm of prostate | CPT/HCPCS: 99214 ==

== ENCOUNTER 2024-06-27 07:36 | Day surgery (SDC) | payer MEDICARE, SELFPAY ==
[2024-06-27 07:54] VITALS: BP 144/74; PULSE 83; RESP 16; TEMP 36.2; O2SAT 98; BMI 26.4
[2024-06-27] MEDS: sodium chloride 0.9% 500 ML 15 ML IV (08:00)
--- NOTE | 2024-06-27 08:03 | PC.NURSE ---
iv started with ultrasound
[2024-06-27 08:10] LABS: Glucose Point of Care 142 mg/dL (70-110)
--- NOTE | 2024-06-27 08:41 | ANES.PREANE2 ---
Pre-Anesthetic Assessment Height/Weight: Height 1.85 m Weight 90.718 kg Temp Pulse Resp BP Pulse Ox O2 Del Method 97.2 F L 83 16 144/74 98 Room Air 06/27/24 07:54 06/27/24 07:54 06/27/24 07:54 06/27/24 07:54 06/27/24 07:54 06/27/24 07:54 Operation Date: 06/27/24 08:30 Proposed Procedures p Colonoscopy 48016, G0105, R94.8(Not Applicable) - Adrian Damon DO Familial anesthetic complications: NOne Was Beta Windy taken within 24 hours: Yes Was Clonidine taken within 24 hours: N/A Last intake: Intake Last Liquid Date 06/26/24 Last Liquid Time 22:00 Last Solid Date 06/25/24 Last Solid Time 17:00 Social No alcohol and No tobacco Exam alert, oriented x 3, clear to auscultation bilaterally and regular rate & rhythm Airway Mallampati: Class II Dentition: partials CV/HEM Arrythmia and Hypertension Metabolic Diabetes Mellitus Anesthetic Plan ASA status: 3 Anesthesia: MAC Risk of > 500 ml blood loss (7ml/kg in children): No Medications/Allergies Home Medications Medication Instructions Recorded Confirmed Last Taken Type calcium carbonate (Calcium 500) 500 mg PO DAILY 07/23/19 06/25/24 06/25/24 History magnesium 200 mg tablet 200 mg PO DAILY 07/23/19 06/25/24 06/25/24 History cholecalciferol (vitamin D3) 25 1,000 unit PO DAILY 07/24/19 06/25/24 06/25/24 History mcg (1,000 unit) capsule naloxone 4 mg/actuation nasal 4 mg intranasal Q3M PRN opioid 11/10/21 06/25/24 Unknown Rx spray (Narcan) overdose #1 ea thiamine HCl (vitamin B1) 100 mg 100 mg PO DAILY 30 days #30 tabs 04/21/23 06/25/24 06/25/24 Rx tablet psyllium husk 3.4 gram/5.4 gram 1 tbsp PO BID #660 grams 07/13/23 06/25/24 06/25/24 Rx oral powder (Metamucil) flash glucose scanning reader #1 ea 10/26/23 06/15/24 Unknown Rx (FreeStyle Braeden 14 Day [place]) flash glucose sensor (FreeStyle #2 ea 10/26/23 06/15/24 Unknown Rx Braeden 2 Sensor kit) atorvastatin 40 mg tablet 40 mg PO DAILY #90 tabs 05/17/24 06/25/24 06/25/24 Rx duloxetine 20 mg capsule,delayed 20 mg PO BID #180 caps 05/17/24 06/25/24 06/25/24 Rx release (Cymbalta) insulin lispro 100 unit/mL See Rx Instructions SUBCUT TID #15 05/17/24 06/25/24 06/25/24 Rx subcutaneous pen (Humalog KwikPen mL (U-100) Insulin) liraglutide 0.6 mg/0.1 mL (18 mg/3 1.8 mg (0.3 mL) SUBCUT Q24H #9 mL 05/17/24 06/25/24 06/25/24 Rx mL) subcutaneous pen injector (Victoza 3-Nadir) lisinopril 5 mg tablet 5 mg PO DAILY #90 tabs 05/17/24 06/25/24 06/25/24 Rx metoprolol succinate 25 mg 25 mg PO DAILY #90 tabs 05/17/24 06/25/24 06/25/24 07:00 Rx tablet,extended release 24 hr (Toprol XL) tamsulosin 0.4 mg capsule (Flomax) 0.4 mg PO .at bedtime #90 caps 05/17/24 06/25/24 06/25/24 Rx fluticasone propionate 50 1 spray intranasal Q12H PRN 06/25/24 06/25/24 06/25/24 History mcg/actuation nasal Allergy Symptoms spray,suspension (Flonase Allergy Relief) insulin glargine 100 unit/mL (3 60 unit SUBCUT QAM 06/25/24 06/25/24 06/26/24 18:00 History mL) subcutaneous pen (Lantus Solostar U-100 Insulin) omega 2-ktw-jid-fish oil 1,000 mg 1 cap PO DAILY 06/25/24 06/25/24 06/25/24 History (120 mg-180 mg) capsule (Fish Oil) tramadol 50 mg tablet 50 - 100 mg PO Q6H PRN pain 06/25/24 06/25/24 06/26/24 06:00 History ibuprofen 200 mg tablet 200 mg PO Q6H PRN Pain (Scale 06/27/24 06/27/24 06/26/24 06:00 History Score 4-6) Allergies Allergy/AdvReac Type Severity Reaction Status Date / Time No Known Allergies Allergy Verified 05/16/24 08:49 Current Medications Generic Name Dose Route Start Last Admin Trade Name Freq PRN Reason Stop Dose Admin Sodium Chloride 500 mls @ 15 mls/hr 06/27/24 07:42 06/27/24 08:00 Sodium Chloride 0.9% IV 06/28/24 07:41 15 mls/hr .Q24H PRN Administration COLONOSCOPY FLUIDS PFSH Anesthesia Medical History History of prostate cancer Urinary hesitancy Left lower lobe pulmonary nodule History of nonmelanoma skin cancer Diabetes mellitus with hyperglycemia, with long-term current use of insulin Chronic knee pain Chronic neck and back pain Acute knee pain Encounter for long-term opiate analgesic use Hypertension Chronic right shoulder pain Long-term use of high-risk medication Spondylosis of cervical region without myelopathy or radiculopathy Hyperlipidemia Surgical History History of left cataract surgery October 2022 History of right cataract surgery October 2022 Status post transurethral resection of prostate September 2018 History of colonoscopy May, @ [facility] – [place], [place] S/P hernia repair INGUINAL HERNIA REPAIR - RIGHT Hx of basal cell carcinoma excision 2013- DR BARNES Family History Mother CAD (coronary artery disease) Other Diabetes Spondylosis of cervical region without myelopathy or radiculopathy Denies family history of Anesthesia complication Bleeding disorder Social History Smoking and tobacco/nicotine status: never used tobacco/nicotine Alcohol intake: current Alcohol intake frequency: 0-2 Drinks per Day Alcohol type: beer Substance/Drug Use: never Adopted: No Caregiver/support person: No Lives independently: Yes Household members: spouse Housing: House Marital status: Current occupational status: employed Current occupational exposures/hazards: No Do you think of yourself as: Straight/Heterosexual Current gender identity: Male Data Anesthesia Cardiac Studies: No Data to Display
--- NOTE | 2024-06-27 08:47 | W.PM.OPSUD ---
Surgery/Procedure H&P Update DATE OF PROCEDURE: June 27, 2024 DATE H&P PERFORMED: 06/15/24 H&P UPDATE INFORMATION: I have reviewed H&P completed within last 30 days, I have examined patient prior to procedure and No changes to prior documentation PLANNED PROCEDURE: Operation Date: 06/27/24 08:30 Proposed Procedures p Colonoscopy 75551, G0105, R94.8(Not Applicable) - Adrian Damon,
[2024-06-27 09:07] VITALS: BP 139/76; PULSE 72; RESP 12; TEMP 36.7; O2SAT 95
[2024-06-27 09:22] VITALS: BP 169/83; PULSE 69; RESP 18; O2SAT 95
--- NOTE | 2024-06-27 09:30 | ANE.PACU2 ---
Inpatient post-anesthesia follow up: Airway intact: Yes Vital signs: Temperature 98.1 F Pulse Rate 69 Respiratory Rate 18 Blood Pressure 169/83 Pulse Oximetry 95 Oxygen Delivery Me thod Room Air Oxygen Flow Rate Fraction of Inspir ed Oxygen Hydration adequate: Yes Nausea and vomiting: No Pain level: 1 Mental status: Baseline
== END 2024-06-27 09:34 | disposition home or self-care (01) ==
PROVIDERS: PCP Nurse Practitioner; Visit Provider Surgery
PROC: 0DJD8ZZ Inspection of Lower Intestinal Tract, Via Natural or Artificial Opening Endoscopic (ICD-10-PCS; CPT 45378; principal; 2024-06-27 08:30)
DX: R94.8 Abnormal results of function studies of other organs and systems (principal); I10 Essential (primary) hypertension; E11.9 Type 2 diabetes mellitus without complications; Z79.4 Long term (current) use of insulin; E11.65 Type 2 diabetes mellitus with hyperglycemia; Z79.899 Other long term (current) drug therapy; E78.5 Hyperlipidemia, unspecified
CPT/HCPCS: 36416; 45378; 82962; J2405; J2704; J7040

== ENCOUNTER 2024-07-10 07:07 | Day surgery (SDC) | payer MEDICARE, SELFPAY ==
[2024-07-10] VITALS (8 sets, daily range): BP systolic 154–166; BP diastolic 77–86; PULSE 68–79; RESP 16–18; TEMP 36.2–36.6; O2SAT 92–95; BMI 26.4
[2024-07-10 07:45] LABS: Glucose Point of Care 205 mg/dL (70-110)
[2024-07-10] MEDS: sodium chloride 0.9% 1,000 ML 30 ML IV (07:45)
--- NOTE | 2024-07-10 08:00 | P.ANESASSM_ITS ---
Pre-Anesthetic Assessment Height/Weight: Height 1.85 m Weight 90.718 kg Temp Pulse Resp BP Pulse Ox O2 Del Method 97.8 F 79 18 154/85 95 Room Air 07/10/24 07:25 07/10/24 07:25 07/10/24 07:25 07/10/24 07:25 07/10/24 07:25 07/10/24 07:25 Operation Date: 07/10/24 09:10 Proposed Procedures p Excision Cervical Lymph Nodes Excision of Deep Anterior Cervical Lymph Node 01302, R59.0(Left) - Adrian Damon DO Familial anesthetic complications: NOne Was Beta Windy taken within 24 hours: N/A Was Clonidine taken within 24 hours: N/A Last intake: Intake Last Liquid Date 07/09/24 Last Liquid Time 22:00 Last Solid Date 07/09/24 Last Solid Time 17:30 Social No alcohol and No tobacco Exam alert, oriented x 3, clear to auscultation bilaterally and regular rate & rhythm Airway Mallampati: Class II Dentition: partials CV/HEM Arrythmia and Hypertension Metabolic Diabetes Mellitus and Hyperlipidemia Anesthetic Plan ASA status: 3 Anesthesia: General Risk of > 500 ml blood loss (7ml/kg in children): No Medications/Allergies Home Medications Medication Instructions Recorded Confirmed Last Taken Type calcium carbonate (Calcium 500) 500 mg PO DAILY 07/23/19 07/09/24 06/25/24 History magnesium 200 mg tablet 200 mg PO DAILY 07/23/19 07/09/24 07/09/24 History cholecalciferol (vitamin D3) 25 1,000 unit PO DAILY 07/24/19 07/09/24 07/09/24 History mcg (1,000 unit) capsule naloxone 4 mg/actuation nasal 4 mg intranasal Q3M PRN opioid 11/10/21 07/09/24 Unknown Rx spray (Narcan) overdose #1 ea thiamine HCl (vitamin B1) 100 mg 100 mg PO DAILY 30 days #30 tabs 04/21/23 07/09/24 06/25/24 Rx tablet psyllium husk 3.4 gram/5.4 gram 1 tbsp PO BID #660 grams 07/13/23 07/09/24 06/25/24 Rx oral powder (Metamucil) flash glucose scanning reader #1 ea 10/26/23 06/15/24 Unknown Rx (FreeStyle Braeden 14 Day [place]) flash glucose sensor (FreeStyle #2 ea 10/26/23 06/15/24 Unknown Rx Braeden 2 Sensor kit) atorvastatin 40 mg tablet 40 mg PO DAILY #90 tabs 05/17/24 07/09/24 07/09/24 Rx duloxetine 20 mg capsule,delayed 20 mg PO BID #180 caps 05/17/24 07/09/24 07/09/24 Rx release (Cymbalta) insulin lispro 100 unit/mL See Rx Instructions SUBCUT TID #15 05/17/24 07/09/24 07/09/24 Rx subcutaneous pen (Humalog KwikPen mL (U-100) Insulin) liraglutide 0.6 mg/0.1 mL (18 mg/3 1.8 mg (0.3 mL) SUBCUT Q24H #9 mL 05/17/24 07/09/24 07/09/24 Rx mL) subcutaneous pen injector (Victoza 3-Nadir) lisinopril 5 mg tablet 5 mg PO DAILY #90 tabs 05/17/24 07/09/24 07/10/24 Rx metoprolol succinate 25 mg 25 mg PO DAILY #90 tabs 05/17/24 07/09/24 07/09/24 Rx tablet,extended release 24 hr (Toprol XL) tamsulosin 0.4 mg capsule (Flomax) 0.4 mg PO .at bedtime #90 caps 05/17/24 07/09/24 07/09/24 Rx fluticasone propionate 50 1 spray intranasal Q12H PRN 06/25/24 07/09/24 06/25/24 History mcg/actuation nasal Allergy Symptoms spray,suspension (Flonase Allergy Relief) insulin glargine 100 unit/mL (3 60 unit SUBCUT QAM 06/25/24 07/09/24 07/09/24 History mL) subcutaneous pen (Lantus Solostar U-100 Insulin) omega 3-vlq-foj-fish oil 1,000 mg 1 cap PO DAILY 06/25/24 07/09/24 07/09/24 History (120 mg-180 mg) capsule (Fish Oil) tramadol 50 mg tablet 50 - 100 mg PO Q6H PRN pain 06/25/24 07/09/24 07/09/24 History ibuprofen 200 mg tablet 200 mg PO Q6H PRN Pain (Scale 06/27/24 07/09/24 07/09/24 History Score 4-6) Allergies Allergy/AdvReac Type Severity Reaction Status Date / Time No Known Allergies Allergy Verified 05/16/24 08:49 Current Medications Generic Name Dose Route Start Last Admin Trade Name Freq PRN Reason Stop Dose Admin Sodium Chloride 1,000 mls @ 30 mls/hr 07/10/24 07:15 07/10/24 07:45 Sodium Chloride 0.9% IV 07/11/24 07:14 30 mls/hr .Q24H DEEDEE Administration PFSH Anesthesia Medical History History of prostate cancer Urinary hesitancy Left lower lobe pulmonary nodule History of nonmelanoma skin cancer Diabetes mellitus with hyperglycemia, with long-term current use of insulin Chronic knee pain Chronic neck and back pain Acute knee pain Encounter for long-term opiate analgesic use Hypertension Chronic right shoulder pain Long-term use of high-risk medication Spondylosis of cervical region without myelopathy or radiculopathy Hyperlipidemia Surgical History History of left cataract surgery October 2022 History of right cataract surgery October 2022 Status post transurethral resection of prostate September 2018 History of colonoscopy May, @ [facility] – [place] S/P hernia repair INGUINAL HERNIA REPAIR - RIGHT Hx of basal cell carcinoma excision 2013- DR BARNES Family History Mother CAD (coronary artery disease) Other Diabetes Spondylosis of cervical region without myelopathy or radiculopathy Denies family history of Anesthesia complication Bleeding disorder Social History Smoking and tobacco/nicotine status: never used tobacco/nicotine Alcohol intake: current Alcohol intake frequency: 0-2 Drinks per Day Alcohol type: beer Substance/Drug Use: never Adopted: No Caregiver/support person: No Lives independently: Yes Household members: spouse Housing: House Marital status: Current occupational status: employed Current occupational exposures/hazards: No Do you think of yourself as: Straight/Heterosexual Current gender identity: Male Data Anesthesia Cardiac Studies: No Data to Display
--- NOTE | 2024-07-10 08:45 | P.HPUD_ITS ---
Surgery/Procedure H&P Update DATE OF PROCEDURE: July 10, 2024 DATE H&P PERFORMED: 06/15/24 H&P UPDATE INFORMATION: I have reviewed H&P completed within last 30 days, I have examined patient prior to procedure and No changes to prior documentation PLANNED PROCEDURE: Operation Date: 07/10/24 09:10 Proposed Procedures p Excision Cervical Lymph Nodes Excision of Deep Anterior Cervical Lymph Node 38 500, R59.0(Left) - Adrian Damon DO
[2024-07-10] MEDS: ceFAZolin 2,000 mg SDV 2000 MG IVP (09:03)
[2024-07-10] MEDS: lidocaine-epi 2% PF 1:200,000 20 mL SDV INJECTION (09:25)
--- NOTE | 2024-07-10 10:38 | PM.OP ---
Operative Report Date of procedure: July 10, 2024 Pre-op diagnosis: Deep left anterior cervical lymph node Post-op diagnosis: same Procedure done: Excision of deep left anterior cervical lymph node Implants: Beti Specimens removed/disposition: Lymph nodes sent lymphoma protocol and for culture Surgeon: Adrian Damon DO Anesthesia: General and Local Estimated blood loss (mL): 20 Complications: None apparent Findings: Necrotic and deep cervical lymph node Brief History: Gentleman with left anterior cervical lymphadenopathy. A large necrotic lymph node was identified in this area on PET scan. Excision was indicated. The risks and benefits were explained and documented. Procedure: Patient is wheeled operative room placed on the OR table in the supine position. General tracheal ovation was achieved by department anesthesia. The left neck was inspected prepped and draped in usual sterile fashion. A timeout was performed. All present were in agreement. 2% lidocaine with epinephrine was used to anesthetize the skin overlying the lymph node. A 15 blade scalpel was then used to make an oblique incision through the skin. Electrocautery was then used to dissect down through the dermis and then the platysmus. A large necrotic lymph node was encountered and it dove deep into the neck behind the carotid sheath. Meticulous and careful dissection was performed around the lymph node. All vessels were clipped and then cut with Metzenbaum scissors. Again, the lymph node dove deep into the neck. Fibrous tissue adhering the lymph node to surrounding structures was carefully dissected with hemostats, Metzenbaum scissors and electrocautery. A portion of the lymph node was sent for culture and the rest was sent fresh, lymphoma protocol. Hemostasis was noted. Beti was placed into the wound. The platysma muscle was approximated using 3-0 Vicryl in an interrupted fashion. Dermis was approximated using 3-0 Vicryl in interrupted subcuticular fashion. Skin was then closed with running 4-0 Monocryl in a subcuticular fashion. Dermabond was applied. Patient tolerated procedure well.
[2024-07-10] MEDS: HYDROcodone-acetaminophen 7.5-325 mg Tablet 1 TAB PO (11:25)
--- NOTE | 2024-07-10 12:25 | ANE.PACU2 ---
Inpatient post-anesthesia follow up: Airway intact: Yes Vital signs: Temperature 97.5 F Pulse Rate 79 Respiratory Rate 18 Blood Pressure 159/77 Pulse Oximetry 94 Oxygen Delivery Me thod Room Air Oxygen Flow Rate Fraction of Inspir ed Oxygen Hydration adequate: Yes Nausea and vomiting: No Pain level: 1 Mental status: Baseline
[2024-07-13 09:58] LABS: Lymphoma Profile (BBPL) See Report
[2024-07-13 10:02] LABS: Lymphoma Profile (BBPL) See Report
== END 2024-07-10 12:26 | disposition home or self-care (01) ==
PROVIDERS: PCP Nurse Practitioner; Visit Provider Surgery
PROC: (CPT 38500; principal; 2024-07-10 09:00)
DX: C91.10 Chronic lymphocytic leukemia of B-cell type not having achieved remission (principal); I10 Essential (primary) hypertension; E11.9 Type 2 diabetes mellitus without complications; E78.5 Hyperlipidemia, unspecified; Z79.4 Long term (current) use of insulin; Z85.46 Personal history of malignant neoplasm of prostate; Z79.899 Other long term (current) drug therapy; Z79.82 Long term (current) use of aspirin
CPT/HCPCS: 38500; 36416; 82962; 87015; 87070; 87075; 87102; 87116; 87176; 87205; 87206; 87801; 88184; 88185; 88307; J0690; J2250; J2704; J2710; J3010; J3490; J7030

== ENCOUNTER → 2024-07-13 10:17 | Outpatient (BNVA) | payer MEDICARE, SELFPAY | PROVIDERS: PCP Nurse Practitioner; Referring Provider Nurse Practitioner; Visit Provider Nurse Practitioner Family | DX: S50.911A Unspecified superficial injury of right forearm, initial encounter (principal); L72.0 Epidermal cyst; Z08 Encounter for follow-up examination after completed treatment for malignant neoplasm; Z85.828 Personal history of other malignant neoplasm of skin; D48.5 Neoplasm of uncertain behavior of skin; L57.0 Actinic keratosis; X58.XXXA Exposure to other specified factors, initial encounter | CPT/HCPCS: 11102; 17000; 99203 ==

== ENCOUNTER → 2024-07-23 08:55 | Outpatient (BNVA) | payer MEDICARE, SELFPAY | PROVIDERS: PCP Nurse Practitioner; Visit Provider Surgery | DX: C83.10 Mantle cell lymphoma, unspecified site (principal) | CPT/HCPCS: 80053; 84153; 85025; 99214 ==

== ENCOUNTER 2024-07-25 12:25 | Oncology outpatient (recurring) (ONCR) | payer MEDICARE, SELFPAY | END 2024-08-10 23:59 | disposition home or self-care (01) | PROVIDERS: PCP Nurse Practitioner; Referring Provider Urology; Visit Provider Nurse Practitioner | DX: C77.0 Secondary and unspecified malignant neoplasm of lymph nodes of head, face and neck (principal); Z85.46 Personal history of malignant neoplasm of prostate; E11.65 Type 2 diabetes mellitus with hyperglycemia; Z79.4 Long term (current) use of insulin; R91.1 Solitary pulmonary nodule | CPT/HCPCS: 99215 ==

== ENCOUNTER → 2024-08-08 09:54 | Outpatient (BNVA) | payer MEDICARE, SELFPAY | PROVIDERS: PCP Nurse Practitioner; Visit Provider Internal Medicine | DX: Z85.46 Personal history of malignant neoplasm of prostate; E11.65 Type 2 diabetes mellitus with hyperglycemia; Z79.4 Long term (current) use of insulin; R91.1 Solitary pulmonary nodule; Z92.3 Personal history of irradiation; C83.01 Small cell B-cell lymphoma, lymph nodes of head, face, and neck | CPT/HCPCS: 99213 ==

== ENCOUNTER → 2024-08-15 10:01 | Outpatient (BNVA) | payer MEDICARE, SELFPAY | PROVIDERS: PCP Nurse Practitioner; Visit Provider Nurse Practitioner | DX: E11.9 Type 2 diabetes mellitus without complications (principal); E55.9 Vitamin D deficiency, unspecified | CPT/HCPCS: 80053; 80061; 82306; 83036 ==

== ENCOUNTER → 2024-08-17 08:54 | Outpatient (BNVA) | payer MEDICARE, SELFPAY | PROVIDERS: PCP Nurse Practitioner; Visit Provider Dermatology | DX: C44.319 Basal cell carcinoma of skin of other parts of face (principal); D48.5 Neoplasm of uncertain behavior of skin | CPT/HCPCS: 11102; 13132; 17311 ==

== ENCOUNTER → 2024-08-22 13:09 | Outpatient (BNVA) | payer MEDICARE, SELFPAY | PROVIDERS: PCP Nurse Practitioner; Visit Provider Dermatology | DX: C79.9 Secondary malignant neoplasm of unspecified site (principal); C44.319 Basal cell carcinoma of skin of other parts of face; C44.41 Basal cell carcinoma of skin of scalp and neck | CPT/HCPCS: 11622; 13132; 99213 ==

== ENCOUNTER 2024-09-12 12:24 | Oncology outpatient (recurring) (ONCR) | payer MEDICARE, SELFPAY ==
[2024-09-10 15:20] LABS: Basophils # 0.1 10^3/uL (0.0-0.1); Basophils % 0.5 %; Eosinophils # 0.1 10^3/uL (0.0-0.8); Eosinophils % 1.1 %; Lymphocytes # 5.1 10^3/uL (0.8-4.8); Lymphocytes % 53.3 %; Mean Corpuscular HGB Conc 33.5 g/dL (30-55); Mean Corpuscular Hemoglobin 29.3 pg (27-33); Mean Corpuscular Volume 87.4 fl (82-101); Mean Platelet Volume 9.6 fL (7.4-10.4); Monocytes # 0.4 10^3/uL (0.2-0.9); Monocytes % 4.6 %; Neutrophils # 3.81 10^3/uL (1.8-7.7); Neutrophils % 40.3 %; Nucleated Red Blood Cells % 0 %; Platelet Count 148 10^3/cmm (157-399); Red Blood Count 3.89 10^6/uL (3.85-5.65); Red Cell Distribution Width 13.3 % (12.1-15.1); White Blood Count 9.47 10^3/uL (3.29-11.43)
[2024-09-10 15:28] LABS: Erythrocyte Sedimentation Rate 1 mm/hr (0-10)
[2024-09-10 15:30] LABS: Reticulocyte % 1.6 % (0.5-2.0)
[2024-09-10 15:48] LABS: Alanine Aminotransferase 24 U/L (0-41); Albumin Level 4.3 g/dL (3.5-5.2); Alkaline Phosphatase 93 U/L (40-130); Aspartate Amino Transferase 22 U/L (0-40); Blood Urea Nitrogen 22 mg/dL (8-23); Calcium 9.1 mg/dL (8.5-10.5); Carbon Dioxide 25 mmol/L (22-29); Chloride 102 mmol/L (98-107); Glucose 173 mg/dL (65-115); Lactate Dehydrogenase 212 U/L (135-225); Osmolality Calculated 287 mOsm/kg (285-295); Phosphorus 3.3 mg/dL (2.5-4.5); Sodium 135 mmol/L (136-145); Total Bilirubin 0.6 mg/dL (0.15-1.2); Total Protein 6.3 g/dL (6.6-8.7); Uric Acid 5.6 mg/dL (3.4-7.0)
[2024-09-10 15:53] LABS: Prostate Specific Antigen < 0.014 ng/mL (0-4)
[2024-09-10 21:38] LABS: Immunoglobulin IGA 121 mg/dL (70-400); Immunoglobulin IGG 796 mg/dL (700-1600); Immunoglobulin IGM 85 mg/dL (40-230)
[2024-09-10 21:44] LABS: Testosterone Total < 2.5 ng/dL (193-740)
[2024-09-11 10:44] LABS: PROTEIN, TOTAL 6.3 g/dL (6.1-8.1)
[2024-09-11 19:45] LABS: ALBUMIN 4.1 g/dL (3.8-4.8); ALPHA 1 GLOBULIN 0.3 g/dL (0.2-0.3); ALPHA 2 GLOBULIN 0.5 g/dL (0.5-0.9); BETA 1 GLOBULIN 0.4 g/dL (0.4-0.6); BETA 2 GLOBULIN 0.3 g/dL (0.2-0.5); GAMMA GLOBULIN 0.8 g/dL (0.8-1.7)
[2024-09-13 23:24] LABS: Immunofixation Serum Normal pattern.
== END 2024-10-08 23:59 | disposition home or self-care (01) ==
PROVIDERS: Internal Medicine; PCP Nurse Practitioner; Referring Provider Urology; Visit Provider Nurse Practitioner
DX: Z08 Encounter for follow-up examination after completed treatment for malignant neoplasm (principal); C77.0 Secondary and unspecified malignant neoplasm of lymph nodes of head, face and neck; Z85.46 Personal history of malignant neoplasm of prostate; E11.65 Type 2 diabetes mellitus with hyperglycemia; Z79.4 Long term (current) use of insulin; Z92.3 Personal history of irradiation; R91.1 Solitary pulmonary nodule; D64.9 Anemia, unspecified
CPT/HCPCS: 11642; 12052; 36415; 80053; 82784; 83010; 83615; 84100; 84153; 84155; 84165; 84403; 84550; 85025; 85045; 85651; 86140; 86334; 86880; 99213

== ENCOUNTER 2024-09-19 13:19 | Outpatient (CLI) | payer MEDICARE, SELFPAY ==
--- NOTE | 2024-09-19 13:22 | XR_ITS ---
WS: [id number] Left clavicle, 2 views, 09/19/2024 Clinical Data: M89.319 - Hypertrophy of bone, unspecified shoulder Comparison: None Findings: No fractures or dislocations are seen. The AC joint is normal. The soft tissues are unremarkable. XR/[place] [id number] Impression: Negative left clavicle.
--- NOTE | 2024-09-19 13:22 | XR_ITS ---
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 Findings: No fractures or dislocations are seen. The AC joint is normal. The adjacent left clavicle, left scapula and ribs are normal. There is a calcification adjacent to the greater tuberosity which may represent calcific bursitis and/or tendinitis.. There are surgical clips in the left side of the neck. XR/XR shoulder LT min 2V* [id number] Impression: Possible calcific bursitis and/or tendinitis of the left shoulder.
== END 2024-09-19 13:20 | disposition home or self-care (01) ==
PROVIDERS: PCP Nurse Practitioner; Visit Provider Nurse Practitioner
DX: M89.312 Hypertrophy of bone, left shoulder (principal); M25.512 Pain in left shoulder; R93.6 Abnormal findings on diagnostic imaging of limbs
CPT/HCPCS: 73000; 73030

== ENCOUNTER → 2024-10-23 08:20 | Outpatient (BNVA) | payer MEDICARE, SELFPAY | PROVIDERS: PCP Nurse Practitioner; Visit Provider Internal Medicine | DX: C83.10 Mantle cell lymphoma, unspecified site (principal) | CPT/HCPCS: 80053; 82607; 82728; 82746; 83010; 83550; 83615; 85025; 85045; 85651 ==

== ENCOUNTER 2024-10-24 10:46 | Oncology outpatient (recurring) (ONCR) | payer MEDICARE, SELFPAY | END 2024-11-07 23:59 | disposition home or self-care (01) | LOC: ONCMED 10:46 | PROVIDERS: PCP Nurse Practitioner; Referring Provider Urology; Visit Provider Nurse Practitioner | DX: C77.0 Secondary and unspecified malignant neoplasm of lymph nodes of head, face and neck (principal); Z85.46 Personal history of malignant neoplasm of prostate; E11.65 Type 2 diabetes mellitus with hyperglycemia; Z72.0 Tobacco use; Z79.4 Long term (current) use of insulin; Z92.3 Personal history of irradiation | CPT/HCPCS: 99214 ==

== ENCOUNTER → 2024-10-30 11:20 | Outpatient (BNVA) | payer MEDICARE, SELFPAY | PROVIDERS: PCP Nurse Practitioner; Visit Provider Clinical Nurse Specialist Adult Health | DX: J06.9 Acute upper respiratory infection, unspecified (principal) | CPT/HCPCS: 87071; 87880 ==

== ENCOUNTER → 2024-11-16 08:29 | Outpatient (BNVA) | payer MEDICARE, SELFPAY | PROVIDERS: PCP Nurse Practitioner; Visit Provider Nurse Practitioner | DX: E11.9 Type 2 diabetes mellitus without complications (principal); E55.9 Vitamin D deficiency, unspecified | CPT/HCPCS: 80053; 80061; 82306; 83036; 85025 ==

== ENCOUNTER 2024-11-23 13:57 | Oncology outpatient (recurring) (ONCR) | payer MEDICARE, SELFPAY ==
--- NOTE | 2024-11-23 14:30 | PETR_ITS ---
PROCEDURE INFORMATION: Exam: PET/CT Skull Base to Mid-thigh Exam date and time: 11/23/2024 3:00 PM Age: 74 years old Clinical indication: Condition or disease; Primary cancer: Malignant neoplasm prostate; Condition/disease: CA cells found in lymph nodes of neck and face; Prior surgery; Surgery date: 1-6 months; Surgery type: Lymph node taken out LABS AND CLINICAL REPORTS: Glucose: 128 mg/dl Treatment strategy for malignancy (PET staging): Restaging (PS) TECHNIQUE: Imaging protocol: Following at least four-hour fasting and following the injection of radiopharmaceutical, low dose CT images were obtained. Then, PET images were obtained. Attenuation corrected images were constructed using the CT scan. Fused images of PET and CT were reviewed. The standardized uptake values (SUV) reported below are maximum values within a region of interest, expressed in gm/ml. Exam includes orbital meatal line to mid-thigh. SUV normalization method: BodyWeight Radiopharmaceutical: 12.48 mCi F-18 FDG (Fluorodeoxyglucose), IV. Time of imaging post radiopharmaceutical administration: 46 minutes Injection site: right ac COMPARISON: PT PET skull to thigh INIT [id number] 05/25/2024 12:45 PM FINDINGS: Brain: Visualized brain has normal physiologic uptake. Pharynx: No abnormal uptake. Larynx: No abnormal uptake. Lungs, pleura and trachea: No abnormal uptake. Heart: Normal physiologic uptake. Coronary arteries: Moderate coronary artery calcification. Mediastinal space: No abnormal uptake. Liver: No abnormal uptake. Gallbladder and biliary ducts: No abnormal uptake. Pancreas: No abnormal uptake. Spleen: No abnormal uptake. Adrenal glands: No abnormal uptake. Kidneys and ureters: Normal physiologic uptake. Stomach and bowel: Redemonstrated focal tracer uptake in the transverse colon with SUV max of 5.8 (series 301, image 204). Otherwise no abnormal uptake. Vasculature: No abnormal uptake. Lymph nodes: Status post left cervical lymph node dissection. No residual FDG avid cervical lymphadenopathy. Skeleton: Suspected enthesopathic uptake in right hip in left shoulder. Soft tissues: No abnormal uptake in the visualized head, neck, chest, abdomen, pelvis, and extremities. METRICS: Mediastinal blood pool: SUV max = 2.3 Liver uptake: SUV max = 2.6 PET/PET skull to thigh SUBS [id number] IMPRESSION: 1. Status post left cervical lymph node dissection. No FDG avid lymphadenopathy. 2. Redemonstrated focal avidity in the transverse colon. Correlation with colonoscopy is recommended to exclude underlying mass.
== END 2024-12-08 23:59 | disposition home or self-care (01) ==
PROVIDERS: PCP Nurse Practitioner; Referring Provider Urology; Visit Provider Internal Medicine
DX: C61 Malignant neoplasm of prostate (principal); C77.0 Secondary and unspecified malignant neoplasm of lymph nodes of head, face and neck
CPT/HCPCS: 78815; A9552

== ENCOUNTER → 2025-01-02 09:09 | Outpatient (BNVA) | payer MEDICARE, SELFPAY | PROVIDERS: PCP Nurse Practitioner; Visit Provider Nurse Practitioner Family | DX: C79.9 Secondary malignant neoplasm of unspecified site (principal); L81.4 Other melanin hyperpigmentation; L57.8 Other skin changes due to chronic exposure to nonionizing radiation; L82.1 Other seborrheic keratosis; X32.XXXA Exposure to sunlight, initial encounter; L73.8 Other specified follicular disorders; Z08 Encounter for follow-up examination after completed treatment for malignant neoplasm; Z85.828 Personal history of other malignant neoplasm of skin; D48.5 Neoplasm of uncertain behavior of skin | CPT/HCPCS: 11102; 99213 ==

== ENCOUNTER 2025-01-16 14:15 | Oncology outpatient (recurring) (ONCR) | payer MEDICARE, SELFPAY ==
[2025-01-09 10:41] LABS: Hematocrit 35.9 % (37-53); Hemoglobin 12.20 g/dL (11.27-16.99); Mean Corpuscular HGB Conc 34.0 g/dL (30-55); Mean Corpuscular Hemoglobin 29.8 pg (27-33); Mean Corpuscular Volume 87.8 fl (82-101); Nucleated Red Blood Cells % 0 %; Platelet Count 137 10^3/cmm (157-399); Red Blood Count 4.09 10^6/uL (3.85-5.65); White Blood Count 8.32 10^3/uL (3.29-11.43)
[2025-01-09 11:06] LABS: Slide Review Slide Review Perform
[2025-01-09 11:15] LABS: Alanine Aminotransferase 24 U/L (0-41); Albumin Level 4.2 g/dL (3.5-5.2); Alkaline Phosphatase 92 U/L (40-130); Anion Gap 16.3 (5-19); Aspartate Amino Transferase 23 U/L (0-40); Blood Urea Nitrogen 18 mg/dL (8-23); Calcium 9.1 mg/dL (8.5-10.5); Carbon Dioxide 24 mmol/L (22-29); Chloride 105 mmol/L (98-107); Creatinine Clr Calc Pharmacy 94.3924; Ferritin 28 ng/mL (30-400); Globulin 2.3 g/dL (1.3-4.6); Glucose 146 mg/dL (65-115); Iron 74 ug/dL (59-158); Osmolality Calculated 297 mOsm/kg (285-295); Potassium 4.3 mmol/L (3.5-5.1); Sodium 141 mmol/L (136-145); Total Iron Binding Capacity 314 mcg/dl; Total Protein 6.5 g/dL (6.6-8.7); Unsaturated Iron Binding 240 ug/dL (112-347); Uric Acid 4.1 mg/dL (3.4-7.0); Vitamin B12 1228 pg/mL (232-1245)
[2025-01-09 11:20] LABS: Prostate Specific Antigen < 0.014 ng/mL (0-4)
--- NOTE | 2025-01-16 16:23 | ONCRAD EPV_ITS ---
Radiation Oncology Established Patient Visit Patient: Braden Sommer [id number] : 1950 Age: 74 Sex: Male Dictated by: Dr. Tiago Dillard Date of Service: 01/16/2025 Referring Physician(s) : Dr. Royer Gonzales Diagnosis: C61 ??? 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 3 years of adjuvant ADT. 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 Current History: Doing well with no complaints. Stable good urinary function with 3 to 4 nocturia. Normal bowel function. Active with stable weight and energy level. No neck symptoms. PET/CT 05/2024 Hypermetabolic uptake in two left cervical lymph nodes. PET/CT 11/2024 negative. Current Medications: B12 Folate, calcium, dULoxetine HCl, fenofibrate, ibuprofen, levemir FlexTouch, lipitor, lisinopril, magnesium, multivitamin Adults, novoLOG, traMADol HCl, victoza. Allergies: No Known Allergies Current Complaints / Review of Systems: . Vital Signs: Performed on 01/16/2025 2:56 PM BMI - 26.229 kg/m2 (high), Height - 73 in, Weight - 198.8 lbs, Temperature - 97.4 f, Pulse - 66 /min, Respiration - 17 /min, O2 Sat - 97 %, Pain - 0, Fatigue - 0 and BP - 120/ 62 mm(hg)(/low). Physical Exam: General: Alert and oriented x 3. No acute distress. HEENT: Well healed left neck incision with no cervical adenopathy. 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 Recommend ongoing observation with periodic imaging as directed by Dr. Nolasco in the future. I did not recommend adjuvant neck radiation at this time. Discussed in detail with imaging review with patient. Also discussed with Dr. Nolasco. Signed by: 01/16/2025 4:21:39 PM <<Signature on File>> Time spent with patient: CPT Code: CPT Code:
== END 2025-02-07 23:59 | disposition home or self-care (01) ==
PROVIDERS: Internal Medicine; PCP Nurse Practitioner; Referring Provider Urology; Visit Provider Radiology Radiation Oncology
DX: C61 Malignant neoplasm of prostate (principal); C85.91 Non-Hodgkin lymphoma, unspecified, lymph nodes of head, face, and neck
CPT/HCPCS: 36415; 80053; 82607; 82728; 82746; 83010; 83540; 83550; 84100; 84153; 84403; 84550; 85025; 85045; 85651; 99024; 99205; 99213

== ENCOUNTER → 2025-01-29 08:03 | Outpatient (BNVA) | payer MEDICARE, SELFPAY | PROVIDERS: PCP Nurse Practitioner; Visit Provider Dermatology | DX: C79.9 Secondary malignant neoplasm of unspecified site (principal); C44.319 Basal cell carcinoma of skin of other parts of face; D04.39 Carcinoma in situ of skin of other parts of face | CPT/HCPCS: 13132; 17282; 17311; 99213 ==

== ENCOUNTER → 2025-02-12 09:23 | Outpatient (BNVA) | payer MEDICARE, SELFPAY | PROVIDERS: PCP Nurse Practitioner; Visit Provider Nurse Practitioner | DX: E11.65 Type 2 diabetes mellitus with hyperglycemia (principal); Z79.4 Long term (current) use of insulin; E78.2 Mixed hyperlipidemia | CPT/HCPCS: 80061; 83036 ==

== ENCOUNTER → 2025-03-12 09:27 | Outpatient (BNVA) | payer MEDICARE, SELFPAY | PROVIDERS: PCP Nurse Practitioner; Visit Provider Nurse Practitioner | DX: C61 Malignant neoplasm of prostate (principal) | CPT/HCPCS: 80053; 82232; 82784; 83615; 84153; 84155; 84165; 85007; 85025; 86334 ==

== ENCOUNTER 2025-03-13 11:58 | Oncology outpatient (recurring) (ONCR) | payer MEDICARE, SELFPAY | END 2025-04-09 23:59 | disposition home or self-care (01) | PROVIDERS: PCP Nurse Practitioner; Referring Provider Urology; Visit Provider Radiology Radiation Oncology | DX: Z08 Encounter for follow-up examination after completed treatment for malignant neoplasm (principal); Z85.46 Personal history of malignant neoplasm of prostate; Z85.72 Personal history of non-Hodgkin lymphomas; F17.200 Nicotine dependence, unspecified, uncomplicated; R91.1 Solitary pulmonary nodule | CPT/HCPCS: 99213 ==

== ENCOUNTER → 2025-05-06 08:53 | Outpatient (BNVA) | payer MEDICARE, SELFPAY | PROVIDERS: PCP Nurse Practitioner; Visit Provider Nurse Practitioner | DX: E11.65 Type 2 diabetes mellitus with hyperglycemia (principal); Z79.4 Long term (current) use of insulin; Z79.891 Long term (current) use of opiate analgesic; E78.2 Mixed hyperlipidemia | CPT/HCPCS: 80053; 80061; 83036 ==